=== PATIENT | female | born 1945 | race Caucasian/White ===

== ENCOUNTER 2017-07-17 06:36 | Day surgery (SDC) | payer MEDICARE, OTHER ==
[~2017-07-17 06:36] MED LIST: Buffered Lidocaine 0.9% SYRIN* 5 ML/SYR SYRINGE INTRADERM ONE; Sodium Citrate/Citric Acid* 15 ML UDC PO ONE
[2017-07-17] MEDS ORDERED: Sodium Citrate/Citric Acid* 15 ML UDC ONE (07:03)
[2017-07-17] MEDS ORDERED: Clindamycin 900 MG IVPREMIX(* 900 MG/50 ML SDV IV ONE (07:03)
[2017-07-17] MEDS ORDERED: Buffered Lidocaine 0.9% SYRIN* 5 ML/SYR SYRINGE ONE (07:04)
[2017-07-17] MEDS ORDERED: Bupivacaine 0.25% SDV* 30 ML ONE (07:04)
[2017-07-17] MEDS ORDERED: Propofol* 10 MG/ML 20 ML BTL IV PUSH ONE (07:50)
[2017-07-17] MEDS ORDERED: Lidocaine 2% PF * 5 ML VIAL ONE (07:50)
[2017-07-17] MEDS ORDERED: fentaNYL* 50 MCG/ML 2 ML VIAL (100 MCG VIAL) ONE (07:52)
[2017-07-17] MEDS ORDERED: Dexamethasone IV* 4 MG/ML 1 ML (4 MG) ONE (08:38)
[2017-07-17] MEDS ORDERED: Ketorolac INJ* 30 MG/ML 1 ML VIAL ONE (09:17)
[2017-07-17] MEDS ORDERED: Ondansetron INJ* 2 MG/ML VIAL IV PRN (09:19)
[2017-07-17] MEDS ORDERED: fentaNYL* 50 MCG/ML 2 ML VIAL (100 MCG VIAL) IV PRN (09:19)
[2017-07-17] MEDS ORDERED: Naloxone* 0.4 MG/ML 1 ML VIAL IV PRN (09:19)
[2017-07-17 11:03] VITALS: BP 111/57
--- NOTE | 2017-07-18 02:31 | OP ---
DATE OF OPERATION: 07/17/17 - [facility] DATE OF : 43 SURGEON: Lb Ferguson MD COLD MOLDING PRESS OPERATOR: PATRICIA Horner. An certified surgical assistant was needed for the entirety of the procedure to aide in positioning of the arm and retraction. ANESTHESIOLOGIST: Dr. Phelps. ANESTHESIA: General. 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 PROCEDURE PERFORMED: 1. Right wrist arthroscopic debridement large degenerative TFCC lesion. 2. Right ulnar shortening osteotomy, 3. Right wrist arthroscopic partial synovectomy. INDICATIONS: Marely is 71, she had a distal radius that was fixed very short in a less than optimal position. She had some attempt by a different surgeon to alleviate her symptoms, attempted to remove the plate, however, the screw were stripped down, so this could not be done. Ultimately, she is left with severe dorsal wrist pain and dorsal ulnar wrist pain. She has lost most of her extension. I told her that we could try to get her some pain relief in the wrist by shortening the ulna and relieving the severe impingement. ESTIMATED BLOOD LOSS: 5 mL. COMPLICATIONS: None. FINDINGS: As expected. DESCRIPTION OF PROCEDURE: Marely was seen in the preoperative holding area. The correct side, site, and procedure were identified. We came back to the operating room. Anesthesia was induced. The arm was prepped and draped in the usual fashion. A time-out was performed. I began by developing the 3-4 arthroscopic portal in standard fashion with 11 blade followed by the mosquito and then the blunt trocar was introduced. The camera introduced in the 3-4 portal. The 4-5 portal was developed. There was abundant dorsal synovitis obscuring almost the entirety of the view. I brought in the [place] 2.5 mm shaver and the debridement was begun. I debrided all of the dorsal synovitis with the shaver, this took quite some time as it was extensive and much longer than normal. After the synovitis was debrided I was able to visualize the ulnar side of the joint. There was complete degeneration of the TFCC. I was able to develop a 6R portal and placed the shaver and the biter through the 6R portal and ultimately we are able to debride all of that TFCC degeneration and fraying back to loose stable edges at the margins. Once everything was completely clean and stable I did one final last debridement of any loose edges with the shaver. The arthroscopic tools were then removed. I then turned my attention to the forearm. I made a longitudinal incision right over the subcutaneous port of the ulna. Dissection was carried down and full-thickness flaps raised up to fascia. I split the fascia overlying this mass with periosteum. Right now over the subcutaneous port of the ulna and used the interval between the ECU and FCU. I released the soft tissue off the dorsum of the bone. I placed my TriMed plate onto the dorsal aspect of the bone. This was clamped and placed. I then placed 1 screw in the far edge of the oblong hole. I then placed the three other screws proximal to the lag screw hole. Once plate was secured, I went ahead and selected a 5 mm cutting guide. I made one parallel cut and the second parallel cut using cutting guide B. I then had already pre-placed my wire for my compression clamp, so I set my compression clamp back in place and compressed the osteotomy down and tightened up the screw in the oblong hole. I then went ahead and drilled in the proximal aspect of the hole and replaced the screw in the oblong hole into that most proximal aspect of the hole. Preoperatively, I templated 8 mm of osteotomies, so I went ahead and selected the 3 mm guide at this time and clamped that into place. I then made another osteotomy and resected an additional 3 mm of ulna. I then placed the compression clamp back on and compressed on the osteotomy. I guided it with the lobster claw clamp and ultimately achieved perfect apposition of the 2 fragments. The lag screw was then placed in standard fashion. This was drilled and then tapped into place in standard fashion with a 20 mm lag screw. I loosened the oblong hole prior to tightening the oblong screw. I then tightened up the oblong hole and placed 2 additional screws just distal to the oblong hole. There was perfect apposition of the osteotomy. The compression was excellent. I brought in the mini C-arm and checked the mini fluoroscopic imaging. I had achieved just 1 mm of ulnar negative variance. The osteotomy was no longer visible on the fluoroscopic imaging. Everything looked good including the screw lengths, so I went ahead and irrigated out the wound. The fascia was closed with 2-0 Vicryl sutures. Subcutaneous tissue was reapproximated with a couple of Vicryl sutures and then the skin was closed with 4-0 Monocryl and Steri-Strips. The arthroscopy portals were closed with 4- 0 Monocryl in simple interrupted sutures. The operative sites had all been infiltrated with 0.25% plain Marcaine. Wounds were then dressed with 4 x 4's and sterile Webril and sugar tong splint was placed. Tourniquet was deflated and the hand pinked up immediately. She was woken up and taken to recovery room in stable condition. [id number]/[facility] #: [id number] SRIKANTH
== END 2017-07-17 11:39 | disposition home or self-care (01) ==
LOC: OR 06:36
PROVIDERS: ATTEND Orthopaedic Surgery Hand Surgery
DX: S52.591P Other fractures of lower end of right radius, subsequent encounter for closed fracture with malunion (principal); M25.831 Other specified joint disorders, right wrist; G56.21 Lesion of ulnar nerve, right upper limb; I10 Essential (primary) hypertension; E78.5 Hyperlipidemia, unspecified; Z87.891 Personal history of nicotine dependence; F41.8 Other specified anxiety disorders; Z85.42 Personal history of malignant neoplasm of other parts of uterus; X58.XXXD Exposure to other specified factors, subsequent encounter; Y92.9 Unspecified place or not applicable
CPT/HCPCS: 88304; 88311; A9270-GY; C1713; C1776; J1100; J1885; J2704; J3010

== ENCOUNTER → 2018-07-30 07:41 | Day surgery (SDC) | payer MEDICARE, OTHER ==
[~2018-07-30 07:41] MED LIST changes: -Buffered Lidocaine 0.9% SYRIN* 5 ML/SYR SYRINGE INTRADERM ONE; +Buffered Lidocaine 1% SYRIN* 1 ML/SYRINGE INTRADERM ONE; +Bupivacaine 0.25% SDV PF* 10 ML VIAL INJ ONE; +Clindamycin 900 MG/D5W BAG(*) 900 MG/50 ML BAG IVPB ONE; +Dexamethasone IV* 4 MG/ML 1 ML (4 MG) ONE; +EPHEDrine (Pressors)* 50 MG/ML VIAL ONE; +Famotidine IV* 10 MG/ML 2 ML (20 mg) IV ONE; +Famotidine IV* 10 MG/ML 2 ML (20 mg) ONE; +KETAMINE HCL* 50 MG/ML 10 ML VIAL ONE; +Ketorolac INJ* 30 MG/ML 1 ML VIAL ONE; +Lactated Ringers 1000 ML Bag* 1,000 ML IV SCH; +Lidocaine 2% PF * 5 ML VIAL ONE; +Midazolam* 1 MG/ML 5 ML VIAL (5 MG) ONE; +Naloxone* 0.4 MG/ML 1 ML VIAL IV PRN; +Ondansetron INJ* 2 MG/ML VIAL IV PRN; +Ondansetron INJ* 2 MG/ML VIAL ONE; +Phenylephrine INJ* 10 MG/ML 1 ML VIAL (10 MG) ONE; +Propofol* 10 MG/ML 20 ML BTL ONE; +ROPIVACAINE 5 MG/ML 30 ML BTL (0.5%) ONE; -Sodium Citrate/Citric Acid* 15 ML UDC PO ONE; +fentaNYL* 50 MCG/ML 2 ML VIAL (100 MCG VIAL) IV PRN; +fentaNYL* 50 MCG/ML 2 ML VIAL (100 MCG VIAL) ONE; +oxyCODONE/Acetamin 5/325 MG* TAB PO PRN
[2018-07-30 14:10] VITALS: BP 113/64
--- NOTE | 2018-07-31 13:25 | OP ---
DICTATION ENDS ABRUPTLY DATE OF OPERATION: 07/30/18 - [facility] DATE OF : 43 SURGEON: Lb Ferguson MD. CABANA ATTENDANT: PATRICIA Horner. An urology physician assistant was needed for the procedure to aid in positioning of the arm and retraction. ANESTHESIOLOGIST: Dr. Kauffman. ANESTHESIA: General. PRE-OP DIAGNOSES: 1. Retained right distal radius plate and screws. 2. Right pisotriquetral degenerative joint disease. 3. Right ulnar nerve compression at the wrist. POST-OP DIAGNOSES: 1. Retained right distal radius plate and screws. 2. Right pisotriquetral degenerative joint disease. 3. Right ulnar nerve compression at the wrist. OPERATIVE PROCEDURE: 1. Removal of deep hardware including two screws from the right distal radius plate and screws. 2. Right wrist pisiform excision. 3. Right ulnar nerve decompression of wrist. INDICATIONS: Marely is 72. She has had distal radius malunion. I have shortened her arm and that helped tremendously with the pain in the wrist. She is still getting a lot of ulnar nerve symptoms which she has had for quite sometime. She has undergone a prior ulnar nerve transposition at the elbow. New set of electrodiagnostic studies showed no changes at the elbow. Overall, she had a lot of clinical signs of pisotriquetral degenerative joint disease as well as I thought that her ulnar nerve symptoms were from wrist and not the elbow. Additionally, I thought she may be potentially having some discomfort stemming from the plate, so I told that I would try to have remove that to the best extent possible. She had attempted the hardware removal earlier and 4 screws remained as well as the plate. I told that I would see what I could do about getting the remainder out. I was optimistic that I would able to get the remaining hardware removed. She understood the risks and benefits including the risk of neurovascular injury, risk of stiffness, risk of persistent pains by doing surgery. She understands and wished to proceed. ESTIMATED BLOOD LOSS: 20 mL. COMPLICATIONS: During the ulnar nerve decompression of the wrist, there was a small valarie made in the ulnar artery, which required a couple of 9-0 nylon sutures for repair. FINDINGS: See above and below. DESCRIPTION OF PROCEDURE: Marely was seen in the preoperative holding area. The correct site, side, and procedure were identified. We came back to the operating room and the arm was prepped and draped in the usual fashion and time- out was performed. I began by exsanguinating the arm with the Esmarch and the tourniquet was inflated to 250 mmHg. The patient's prior longitudinal incision over the distal FCR tendon was utilized. Dissection was carried down, radial through the FCR ____ DICTATION ENDS ABRUPTLY [id number]/[facility] #: [id number] SRIKANTH
== END | disposition home or self-care (01) ==
LOC: OR 07:41
PROVIDERS: ATTEND Orthopaedic Surgery Hand Surgery
DX: T84.84XA Pain due to internal orthopedic prosthetic devices, implants and grafts, initial encounter (principal); Y83.1 Surgical operation with implant of artificial internal device as the cause of abnormal reaction of the patient, or of later complication, without mention of misadventure at the time of the procedure; G56.21 Lesion of ulnar nerve, right upper limb; S52.591P Other fractures of lower end of right radius, subsequent encounter for closed fracture with malunion; I10 Essential (primary) hypertension; E78.5 Hyperlipidemia, unspecified; F41.8 Other specified anxiety disorders
CPT/HCPCS: 88300; 88304; 88311; J1100; J1885; J2250; J2405; J2704; J2795; J3010; J3490

== ENCOUNTER 2019-01-30 18:35 | Emergency (ER) | payer MEDICARE, OTHER ==
--- NOTE | 2019-01-30 19:52 | ED ---
Lower Extremity - HPI Summary HPI Summary: This patient is a 73 year old F presenting to [facility] with a chief complaint of swelling and pain in right legs for the past 3 weeks. Pt went to radiology, and had a venogram. She was told a series of blood clots were found and was sent to the ED. She goes to Dr. Tolliver for the swelling in her legs, and he was the one who ordered the venogram. Pt had an ultrasound done 3 weeks ago and it was negative. Pt has no PMHx of clots, or blood disease. Pt has a Hx of Uterine Cancer, and has had a hysterectomy. - History of Current Complaint Chief Complaint: EDExtremityLower Stated Complaint: DVT ON RIGHT SIDE OF BODY, PER DR BOLAND PER PT Time Seen by Provider: 01/30/19 19:40 Hx Obtained From: Patient Onset/Duration: Still Present Severity Initially: Moderate Severity Currently: Moderate Pain Intensity: 6 Pain Scale Used: 0-10 Numeric Timing: Constant Location: Is Diffuse - right leg Associated Signs And Symptoms: Positive: Swelling - Allergies/Home Medications Allergies/Adverse Reactions: Allergies Allergy/AdvReac Type Severity Reaction Status Date / Time Penicillins Allergy Unknown Unknown Verified 01/30/19 17:16 Reaction Details Home Medications: Home Medications Ascorbic Acid TAB* [Vitamin C TAB*] 500 mg PO DAILY 01/30/19 [History Confirmed 01/30/19] Cholecalciferol (Vitamin D3) [Vitamin D3] 3,000 units PO DAILY 01/30/19 [ History Confirmed 01/30/19] Rosuvastatin Calcium 10 mg PO DAILY 01/30/19 [History Confirmed 01/30/19] PMH/Surg Hx/FS Hx/Imm Hx Cardiovascular History: Reports: Hx Hypertension - ON MEDICATION, Other Cardiovascular Problems/Disorders - HIGH CHOLESTEROL GI History: Reports: Hx Irritable Bowel - diet Musculoskeletal History: Reports: Hx Arthritis - knees and hips Sensory History: Reports: Hx Contacts or Glasses - GLASSES Denies: Hx Hearing Aid Opthamlomology History: Reports: Hx Contacts or Glasses - GLASSES Psychiatric History: Reports: Hx Anxiety - MEDICATION - Cancer History Hx Chemotherapy: No Hx Radiation Therapy: No - Surgical History Surgery Procedure, Year, and Place: [facility] R/T UTERINE [place]. 1972 [facility]. 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 LEFT KNEE SURGERY (LIGAMENTS) [facility]. 1995 SEPTAL SURGERY [facility]. 8 RIGHT WRIST SURGERIES Hx Anesthesia Reactions: No Infectious Disease History: No Infectious Disease History: Denies: Traveled Outside the [place] in Last 30 Days - Family History Known Family History: Negative: Blood Disorder - Social History Occupation: Retired Alcohol Use: None Substance Use Type: Reports: None Hx Tobacco Use: Yes Smoking Status (MU): Former Smoker Type: Cigarettes Amount Used/How Often: 1 PPD,smoked for 30 approx Have You Smoked in the Last Year: No Review of Systems Negative: Fever Positive: Edema, Other - pos - right leg pain All Other Systems Reviewed And Are Negative: Yes Physical Exam - Summary Physical Exam Summary: VITAL SIGNS: Reviewed. GENERAL: Patient is a well-developed and nourished female who is lying comfortable in the stretcher. Patient is not in any acute respiratory distress. HEAD AND FACE: No signs of trauma. No ecchymosis, hematomas or skull depressions. No sinus tenderness. EYES: PERRLA, EOMI x 2, No injected conjunctiva, no nystagmus. EARS: Hearing grossly intact. Ear canals and tympanic membranes are within normal limits. MOUTH: Oropharynx within normal limits. NECK: Supple, trachea is midline, no adenopathy, no JVD, no carotid bruit, no c- spine tenderness, neck with full ROM CHEST: Symmetric, no tenderness at palpation LUNGS: Clear to auscultation bilaterally. No wheezing or crackles. CVS: Regular rate and rhythm, S1 and S2 present, no murmurs or gallops appreciated. ABDOMEN: Soft, non-tender. No signs of distention. No rebound no guarding, and no masses palpated. Bowel sounds are normal. EXTREMITIES: FROM in all major joints, right lower extremity edema, no cyanosis or clubbing. NEURO: Alert and oriented x 3. No acute neurological deficits. Speech is normal and follows commands. SKIN: Dry and warm Triage Information Reviewed: Yes Vital Signs On Initial Exam: Initial Vitals Temp Pulse Resp BP Pulse Ox 97.6 F 86 18 173/102 99 01/30/19 18:39 01/30/19 18:39 01/30/19 18:39 01/30/19 18:39 01/30/19 18:39 Vital Signs Reviewed: Yes Diagnostics - Vital Signs Vital Signs Temp Pulse Resp BP Pulse Ox 01/30/19 19:00 84 97 01/30/19 18:56 90 167/106 99 01/30/19 18:55 90 98 01/30/19 18:39 97.6 F 86 18 173/102 99 - Laboratory Result Diagrams: 01/30/19 20:29 01/30/19 20:29 Lab Statement: Any lab studies that have been ordered have been reviewed, and results considered in the medical decision making process. - EKG 2018 Cardiac Rate: NL - 73 bpm EKG Rhythm: Sinus Rhythm Summary of EKG Findings: An EKG at 20:18 reveals sinus rhythm 73 bpm. Re-Evaluation - Re-Evaluation First Eval Re-Evaluation Time: 21:15 Comment: Discussed plan of care with pt. Lower Extremity Course/Dx - Course Course Of Treatment: This patient is a 73 year old F presenting to [facility] with a chief complaint of swelling and pain in right legs for the past 3 weeks. Pt went to radiology, and had a venogram. She was told a series of blood clots were found and was sent to the ED. Pt had an ultrasound done 3 weeks ago and it was negative. Pt has no PMHx of clots, or blood disease. Physical exam findings are nml except right lower extremity swelling. Blood work obtained. Potassium is 3.0. An EKG at 2018 reveals sinus rhythm 73 bpm. In the ED course the patient was given Enoxaparin, and Potassium Clor TAB. We discussed patient care with Dr. Duran believes pt should be discharged. Dr. Duran and her LACE MACHINE OPERATOR saw pt in ED and just recommended pt be put on xarelto. Patient will be discharged. The patient is agreeable with this plan. - Diagnoses Provider Diagnoses: Deep vein thrombosis (DVT) of right lower extremity - Physician Notifications Discussed Care Of Patient With: Stefan Boland Time Discussed With Above Provider: 19:53 Instructed by Provider To: Other - Discussed pt case with Dr. Boland; 21:22 Discussed pt case with Dr. Duran; 21:31 Dr. Duran would like to discharge pt but will send someone to see pt. 22:19 LACE MACHINE OPERATOR saw pt and discussed with both Dr. Arroyo and Dr Duran and thinks it would be best to discharge pt. Discharge - Sign-Out/Discharge Documenting (check all that apply): Patient Departure - Discharge Patient Received Moderate/Deep Sedation with Procedure: No - Discharge Plan Condition: Fair Disposition: HOME Prescriptions: Rivaroxaban TAB(*) [Xarelto 15 mg(*)] 15 mg PO BID #42 tab Patient Education Materials: Deep Vein Thrombosis (ED) Referrals: Gordon Fox MD [Primary Care Provider] - 1 Day Additional Instructions: Pt has a 21 day supply of Xarelto, contact primary care provider for new prescription. PLEASE RETURN TO THE ED IMMEDIATELY FOR WORSENING OR CONCERNING SYMPTOMS. FOLLOW UP WITH PRIMARY CARE PHYSICIAN WITHIN 1-2 DAYS. - Billing Disposition and Condition Condition: FAIR Disposition: Home - Attestation Statements Document Initiated by Aliza: Yes Documenting Scribe: Gloria Meneses Provider For Whom Aliza is Documenting (Include Credential): Dr. Jorge Hale MD Scribe Attestation: Gloria Vu scribed for Dr. Jorge Hale MD on 01/31/19 at 0528. Scribe Documentation Reviewed: Yes Provider Attestation: The documentation as recorded by the Gloria phillips accurately reflects the service I personally performed and the decisions made by , Dr. Jorge Hale MD Status of Scribcatrachito Document: Viewed
[2019-01-30 20:36] LABS: ABS Basophils 0.1 10^3/ul (0-0.2); ABS Eosinophils 0.1 10^3/ul (0-0.6); ABS Lymphocytes 1.9 10^3/ul (1.0-4.8); ABS Monocytes 0.5 10^3/ul (0-0.8); ABS Neutrophils 3.9 10^3/ul (1.5-7.7); Eosinophil % 2.2 %; Hematocrit 38 % (35-47); Hemoglobin 13.1 g/dL (12.0-16.0); Lymphocyte % 28.3 %; Mean Corpuscular HGB Conc 34 g/dL (31-36); Mean Corpuscular Hemoglobin 29 pg (27-31); Mean Corpuscular Volume 85 fL (80-97); Mean Platelet Volume 8.8 fL (7.4-10.4); Platelet Count 232 10^3/uL (150-450); Red Blood Count 4.48 10^6 /uL (3.70-4.87); Red Cell Distribution Width 14 % (10-15); White Blood Count 6.5 10^3/uL (3.5-10.8)
[2019-01-30 20:45] LABS: Activated Partial Thrombo Time 31.1 seconds (26.0-38.0); INR 0.97 (0.82-1.09)
[2019-01-30 20:52] LABS: Albumin 4.2 g/dL (3.2-5.2); Albumin/Globulin Ratio 1.4 (1-3); BUN/Creatinine Ratio 18.7 (8-20); Calcium 9.2 mg/dL (8.6-10.3); EGFR African American 73.1 (>60); EGFR Non-African American 60.4 (>60); Globulin 2.9 g/dL (2-4); Total Bilirubin 0.3 mg/dL (0.2-1.0); Total Protein 7.1 g/dL (6.4-8.9)
[2019-01-30] MEDS ORDERED: Enoxaparin(*) 80 MG/0.8 ML SYR SUBCUT ONE (21:13)
[2019-01-30] MEDS ORDERED: Potassium Chlor TAB* 20 MEQ TAB.ER PO ONE (21:13)
--- NOTE | 2019-01-30 22:29 | CONSULT ---
Subjective Date of Service: 01/30/19 Interval History: Ms. Sanderson is a 73 yo F who was sent to the ED from radiology after findings of new onset DVTs. The patient reports that she has been having RLE edema since October. No associated pain, but there is discomfort on palpation. She did have some bruising to the anterior right thigh that has since resolved. She has been seeing Dr. Tolliver for the edema and has been prescribed Medrol dose packs x2 which did decrease the edema slightly. Had imaging today because of continued edema and was noted to have multiple DVTs in the RLE including the distal iliac and common femoral veins. Denies CP, SOB, dizziness. No history of DVT/PE. No recent travel or surgeries. Past Medical History: Unchanged from Admission - HTN, HLD, anxiety, uterine cancer in remission s/p hysterectomy Review of Systems - Measurements Intake and Output: Intake and Output Last 24 Hours 01/28/19 01/29/19 01/30/19 01/31/19 06:59 06:59 06:59 06:59 Weight 169 lb - Review of Systems Constitutional Symptoms: Negative: Weakness, Fatigue, Unexplained Falls Dermatology: Positive: Normal HEENT: Positive: Normal Pulmonary: Positive: Normal Negative: Cough, Hemoptysis, Respiratory Distress, Shortness of Breath, Exercise Intolerance Cardiology: Positive: Normal Negative: Chest Pain, Shortness of Breath, Faintness, Syncope Musculoskeletal: Negative: Joint Pain, Joint Stiffness Neurology: Positive: Normal Objective Vital Signs - 8 hr 01/30/19 01/30/19 01/30/19 18:39 18:55 18:56 Temperature 97.6 F Pulse Rate 86 90 90 Respiratory 18 Rate Blood Pressure 173/102 167/106 (mmHg) O2 Sat by Pulse 99 98 99 Oximetry 01/30/19 19:00 Temperature Pulse Rate 84 Respiratory Rate Blood Pressure (mmHg) O2 Sat by Pulse 97 Oximetry Oxygen Devices in Use Now: None Appearance: Elderly female laying in bed in NAD Eyes: No Scleral Icterus Ears/Nose/Mouth/Throat: Mucous Membranes Moist Neck: NL Appearance and Movements; NL JVP, Trachea Midline Respiratory: Symmetrical Chest Expansion and Respiratory Effort, Clear to Auscultation Cardiovascular: NL Sounds; No Murmurs; No JVD, RRR Extremities: - - Mild nonpitting RLE with slight discomfort on palpation Skin: No Rash or Ulcers Neurological: Alert and Oriented x 3 Result Diagrams: 01/30/19 20:29 01/30/19 20:29 Assessment/Plan - Billing Ms. Sanderson is a 73 yo F with PMH of uterine cancer in remission s/p hysterectomy , HTN, HLD, and anxiety who presented to the ED today with new onset DVTs found on outpatient imaging. Plan By Medical Problem: 1. Unprovoked DVTs: Extensive DVTs to the RLE including the distal iliac and common femoral veins. Mild edema, but no pain or erythema. No symptoms of PE. Spoke with Oncologist content writer who advised that because she is in remission, she does not require any additional monitoring or treatment. At this point the patient is comfortable going home. She is understanding of the symptoms of PE and was able to verbalize those. She lives with her who was also present for this conversation. She did receive a dose of Lovenox in the ED, so I would recommend that she start anticoagulation in the AM. I did speak with her about options, and she is opting for a NOAC at this time. I would recommend Xarelto 15mg BID for 21 days then 20mg daily thereafter. She will need close followup with her PCP. 2. HTN: She is quite hypertensive in the ED and has only been on 12.5mg of HCTZ. I would recommend increasing this to 25mg daily. 3. Disposition: Stable for discharge home with outpatient followup. Attending: Emmy Duran
[2019-01-30 22:59] VITALS: BP 155/87
--- OUTSIDE RECORDS SUMMARY | 2019-01-31 01:24 | XMS REPORT | Continuity of Care Document ---
:1945 External Reference #:[id number] Author Name Clark Nikki Care Team Providers Name Role Phone Gordon Fox MD Primary Care Physician Unavailable Payers Date Identification Numbers Payment Provider Subscriber Policy Number: [id number] Medicare Marely Card PayID: [id number] [address] [place] [address] Effective: 2009 Policy Number: [id number] Medicare Marely Card Expires: 2018 PayID: [id number] [address] [place] [address] Policy Number: [id number] For Life Marely Card PayID: [id number] [address] [place] [address] Problems Active Problems Provider Date Chest pain Theresa Chavez M.D. Onset: 08/28/2012 Hyperlipidemia Theresa Chavez M.D. Onset: 08/28/2012 Essential hypertension Theresa Chavez M.D. Onset: 08/28/2012 Fracture malunion Lb Ferguson MD Onset: 05/16/2017 Lesion of ulnar nerve Lb Ferguson MD Onset: 05/16/2017 Pain due to internal orthopedic Lb Ferguson MD Onset: 07/04/2018 prosthetic devices, implants and grafts, subsequent encounter Localized, primary osteoarthritis of Lb Ferguson MD Onset: 08/14/2018 the wrist Localized superficial swelling of skin Stefan Mckeon M.D. Onset: 2018 Family History Date Family Member(s) Observation Comments General Cancer General Hypertension General Heart Disease Father Heart Disease Father due to CHF () Father Chronic Obstructive Pulmonary Disease (COPD) Mother due to old age () First Daughter Alive And Well Second Daughter Alive And Well First Brother due to Cancer () Second Brother due to Diabetes () Second Brother due to Heart Disease () First Sister "not healthy" unk Second Sister due to Diabetes () Second Sister due to Heart Disease () Paternal Grandfather due to epilepicy () Paternal Grandmother due to Unknown Causes () Maternal Grandfather due to MA () Maternal Grandmother due to Old age () Social History Type Date Description Comments Sex Unknown Marital Status Lives With Occupation Retired teacher Cigarette Use Pack Years - 30 Cigarette Use Quit 25 Years Ago ETOH Use Denies alcohol use Tobacco Use Start: Unknown End: Patient is a former quite 18 years ago. Unknown smoker 30 years 1 PPD Recreational Drug Use Denies Drug Use Smoking Status Reviewed: 01/18/19 Patient is a former quite 18 years ago. smoker 30 years 1 PPD Exercise Type/Frequency Exercises regularly dances daily, weights Allergies, Adverse Reactions, Alerts Active Allergies Reaction Severity Comments Date Penicillins Mild family hx 07/06/2012 Hydroxychloroquine 09/28/2018 Medications Active Medications SIG Qnty Indications Ordering Date Provider Medrol take as directed 21tabs [facility] 4mg Tablets per gaudencio Tolliver MD 9 instructions Medrol take as directed 21tabs [facility] 4mg Tablets per jayde Tolliver MD 9 instructions Rosuvastatin Calcium 1 by mouth every 30tabs I10 Benjamin Noble 10mg day DO Ronnie 9 Tablets FACC Linzess 1 by mouth every Unknown 145mcg Capsules day 0 Vitamin C ER 1 by mouth every Unknown 500mg Capsules ER day 0 Buspirone HCL 2 by mouth three Gordon Fox 7.5mg Tablets times a day as MD Ryan 0 needed Hydrochlorothiazide 1 by mouth daily Gordon Fox 12.5mg MD Ryan 0 Tablets Advil as needed Unknown 200mg Tablets 0 Vitamin D-3 1 po qd 30tabs Unknown 3000Units Tablets 0 Multivitamins 1 capsule daily 30caps Unknown Capsules 0 Valium 1 po qid prn 1tabs Unknown 10mg Tablets 0 History Medications Keflex by mouth every 8 21caps Ankit Soriano 12/05/2018 - 500mg Capsules hours x 7 days MD Unruly 12/25/2018 Tramadol HCL 1-2 tablets by 30tabs Lb Ferguson, 07/30/2018 - 50mg mouth every 6 MD 10/04/2018 Tablets hours as needed pain Hydrocodone-Acetamino 1 or 2 tabs by 30tabs Lb Ferguson, 06/12/2017 - phen mouth every 6-8 MD 07/03/2018 5-325mg Tablets hours as needed for post-operative pain Buspar 2 po hs 60tabs Unknown - 15mg Tablets 09/04/2018 Ambien CR 1 qhs prn 15tabs Unknown - 6.25mg 12/30/2014 Tablets ER Stool Softener prn Unknown - Tablets 07/03/2018 Calcium Magnesium 750 hs Unknown - 07/03/2018 Tablets Fenofibrate 1 by mouth daily I10 Unknown - 200mg 10/05/2018 Capsules Vital Signs Date Vital Result Comment 01/18/2019 1:03pm Height 66 inches 5'6" Weight 167.50 lb Heart Rate 90 /min BP Systolic 126 mmHg BP Diastolic 80 mmHg Pain Level 2 O2 % BldC Oximetry 96 % BMI (Body Mass Index) 27.0 kg/m2 01/09/2019 8:09am Height 66 inches 5'6" Weight 170.00 lb with shoes Heart Rate 90 /min BP Systolic Sitting 120 mmHg Lue reg cuff BP Diastolic Sitting 74 mmHg Lue reg cuff Respiratory Rate 16 /min BMI (Body Mass Index) 27.4 kg/m2 12/26/2018 2:30pm Height 66 inches 5'6" Weight 169.00 lb Heart Rate 74 /min Respiratory Rate 16 /min Pain Level 2 BMI (Body Mass Index) 27.3 kg/m2 12/11/2018 3:03pm Height 66 inches 5'6" Weight 170.00 lb BP Systolic 124 mmHg BP Diastolic 73 mmHg Respiratory Rate 17 /min Pain Level 4 BMI (Body Mass Index) 27.4 kg/m2 12/03/2018 4:24pm Height 66 inches 5'6" Weight 171.00 lb Heart Rate 76 /min BP Systolic 132 mmHg BP Diastolic 78 mmHg Respiratory Rate 12 /min Pain Level 6 BMI (Body Mass Index) 27.6 kg/m2 10/05/2018 1:07pm Height 65 inches 5'5" Weight 166.00 lb Heart Rate 68 /min BP Systolic Sitting 120 mmHg lue reg cuff BP Diastolic Sitting 80 mmHg lue reg cuff BP Systolic Standing 118 mmHg lue reg cuff BP Diastolic Standing 80 mmHg lue reg cuff Respiratory Rate 14 /min BMI (Body Mass Index) 27.6 kg/m2 Ejection Fraction 60-65% 08/14/2018 1:51pm Height 65 inches 5'5" Heart Rate 84 /min Respiratory Rate 18 /min Body Temperature 98.0 F Pain Level 2 07/04/2018 9:24am Height 65 inches 5'5" Weight 168.00 lb BP Systolic 119 mmHg BP Diastolic 82 mmHg Respiratory Rate 16 /min Pain Level 3 BMI (Body Mass Index) 28.0 kg/m2 05/30/2018 11:29am Height 65 inches 5'5" Weight 172.00 lb Heart Rate 90 /min Respiratory Rate 16 /min Body Temperature 97.7 F Pain Level 7 BMI (Body Mass Index) 28.6 kg/m2 10/31/2017 2:52pm Height 65 inches 5'5" Weight 172.00 lb BP Systolic 108 mmHg BP Diastolic 70 mmHg Respiratory Rate 16 /min Body Temperature 97.3 F Pain Level 2 BMI (Body Mass Index) 28.6 kg/m2 08/29/2017 2:52pm Height 65 inches 5'5" Weight 174.00 lb Respiratory Rate 14 /min Pain Level 4 BMI (Body Mass Index) 29.0 kg/m2 07/28/2017 1:06pm Height 65 inches 5'5" Weight 174.00 lb Heart Rate 71 /min Respiratory Rate 14 /min Body Temperature 97.1 F Pain Level 5 BMI (Body Mass Index) 29.0 kg/m2 07/07/2017 1:56pm Height 65 inches 5'5" Weight 174.00 lb Heart Rate 68 /min BP Systolic 122 mmHg BP Diastolic 74 mmHg Respiratory Rate 17 /min Body Temperature 97.3 F Pain Level 4 BMI (Body Mass Index) 29.0 kg/m2 05/16/2017 2:07pm Height 65 inches 5'5" Weight 183.00 lb Respiratory Rate 14 /min Body Temperature 97.6 F Pain Level 6 BMI (Body Mass Index) 30.4 kg/m2 01/29/2015 2:09pm Height 65 inches 5'5" Weight 173.00 lb Heart Rate 83 /min BP Systolic Sitting 109 mmHg BP Diastolic Sitting 84 mmHg Respiratory Rate 18 /min Pain Level 8 BMI (Body Mass Index) 28.8 kg/m2 10/16/2012 2:16pm Height 65 inches 5'5" Weight 152.00 lb Heart Rate 100 /min BP Systolic Sitting 130 mmHg BP Diastolic Sitting 70 mmHg Respiratory Rate 20 /min BMI (Body Mass Index) 25.3 kg/m2 08/28/2012 1:47pm Height 65 inches 5'5" Weight 158.00 lb Heart Rate 88 /min BP Systolic Sitting 150 mmHg BP Diastolic Sitting 82 mmHg Respiratory Rate 20 /min BMI (Body Mass Index) 26.3 kg/m2 12/01/2010 11:40am Height 65 inches 5'5" Weight 149.00 lb Heart Rate 75 /min BP Systolic 158 mmHg BP Diastolic 94 mmHg BMI (Body Mass Index) 24.8 kg/m2 Results Test Date Facility Test Result H/L Range Note Creatinine 12/13/2018 [facility] Creatinine 0.94 mg/dL N 0.51- [address] [place] [address] [phone] Egfr Non- 58.2 >60 Egfr 70.4 >60 1 Laboratory test 12/13/2018 [facility] Blood Urea 20 mg/dL N 6- [address] [place] [address] [phone] Arthritis Panel 12/05/2018 [facility] Anti-Nuclear 0.[address] [place] [address] [phone] Cyclic Citrullinated Peptide 56.1 U Abnormal 3 Interpretation See Comment 4 Laboratory test 12/05/2018 [facility] C Reactive 43.60 mg/L High <8.[address] [place] [address] [phone] Erythrocyte Sed Rate 44 mm/Hr High 0-29 Lupus Anticoagulant 12/05/2018 [facility] Prothrombin 10.9 sec [address] Time(L[place]) [place] [address] [phone] Lac Inr 1.0 Lac Aptt 28 sec 26 - 36 Lac DRVVT Screen Ratio 1.0 ratio 0.0 - 1.1 Lupus Anticoagulant Interpreta See Comment 6 Nuclear AB 12/05/2018 [facility] Nuclear Ab Positive 1:160 Abnormal 7 (Annia) By [address] (Annia) by [place], [place] [address] IgG [phone] Annia Titer: 1:160 Annia Pattern: Homogeneous 8 Laboratory test 12/05/2018 [facility] Rheumatoid Factor < 10 IU/ mL N <[address] [place], [place] [address] [phone] Uric Acid 5.6 mg/dL N 2.3-6.6 Lyme Disease 12/05/2018 [facility] B burgdorferi Negative Negative PCR [address] PCR, [place] [address] [phone] B mayonii PCR Negative Negative B garinii/B afzelii PCR Negative Negative Lyme Disease PCR Comment See Comment 9 Laboratory test 12/03/2018 [facility] Miscellaneous Test See Comment [address] [place] [address] [phone] Body Fluid Cell 12/03/2018 [facility] Body Fluid Source Synovial Count [address] [place] [address] [phone] Body Fluid Appearance Clear Body Fluid Color Yellow Body Fluid Volume 11.0 mL Body Fluid WBC 194 /mcL N 11 Body Fluid RBC 581 /mcL Body Fluid Neutrophils 24 % Body Fluid Lymph 66 % Body Fluid [place] 10 % Body Fluid Other Cells 12 Body Fluid Total Cells Counted 100 Fluid Reviewed By MD (SEE NOTE) 12 Lyme Disease PCR 12/03/2018 [facility] Lyme Disease SYNOVIAL Tissue/Fluid [address] Source [place], [place] [address] [phone] B. burgdorferi PCR Negative Negative B. mayonii PCR Negative Negative B. garinii/B. afzellii PCR Negative Negative 13 Laboratory test 07/30/2018 [facility] Surgical SEE RESULT [address] [place] [address] [phone] Laboratory test 07/17/2017 [facility] Surgical SEE RESULT [address] [place] [address] [phone] 1 Because ethnic data is not always readily available, this report includes an eGFR for both -Americans and non- Americans. The National Kidney Disease Education Program (NKDEP) does not endorse the use of the MDRD equation for patients that are not between the ages of 18 and 70, are , have extremes of body size, muscle mass, or nutritional status, or are non- or non-. According to the National Kidney Foundation, irrespective of diagnosis, the stage of the disease is based on the level of kidney function: Stage Description GFR(mL/min/1.73 m(2)) 1 Kidney damage with normal or decreased GFR 90 2 Kidney damage with mild decrease in GFR 60-89 3 Moderate decrease in GFR 30-59 4 Severe decrease in GFR 15-29 5 Kidney failure <15 (or dialysis) 2 REFERENCE VALUE <=1.0 (Negative) 3 Interpretation: Positive (40.0-59.9) REFERENCE VALUE <20.0 (Negative) 4 RESULT: Compatible with rheumatoid arthritis. Test Performed by: [facility] [employer] - [facility] [address] [place] [address] 5 REFERENCE VALUE 10.3 - 12.8 6 No evidence of a lupus-like anticoagulant based on results of Prothrombin Time (PT), Activated Partial Thromboplastin Time (APTT), and Dilute Russells Viper Venom Time (DRVVT). Interpretation not reviewed by physician. Test Performed by: [facility] [address] [place] [address] 7 REFERENCE VALUE <1:80 (Negative) 8 Test Performed by: [facility] [employer] - [facility] [address] [place] [address] 9 A negative result does not exclude infection with Borrelia burgdorferi. Serologic testing as per CDC guidelines may be indicated. ADDITIONAL INFORMATION This test was developed and its performance characteristics determined by [facility] in a manner consistent with CLIA requirements. This test has not been cleared or approved by the U.S. Food and Drug Administration. Test Performed by: [facility] - [address] [address] 10 Test Result Flag Unit RefValue Crystal ID, Synovial Fl None seen None seen Reviewed By: Sara Test Performed by: [facility] - [address] [address] 11 -- REFERENCE VALUE -- Synovial: <150/mcL Peritoneal: <500/mcL Pleural: <500/mcL Pericardial: <500/mcL 12 No acute inflammation or malignancy identified. Reviewed by Dr. Shrestha 13 ADDITIONAL INFORMATION This test was developed and its performance characteristics determined by [facility] in a manner consistent with CLIA requirements. This test has not been cleared or approved by the U.S. Food and Drug Administration. Test Performed by: [facility] - [address] [address] 14 SEE RESULT BELOW Name: MARELY CARD : [address]: Lb Ferguson MD Acct: [id number] Unit: [id number] AGE: 72 Location: OR Re07/30/18 SEX: F [place] [facility] [place]C: [id number] REJI: 07/30/18- [facility] DR: Lb Ferguson MD REQ: [id number] RECD: 07/30/18 STATUS: SOUT _ ORDERED: Decal, LEVEL 1, LEVEL 3 ADDENDUM Addendum: Specimen #2 examined after decalcification. 2. Right fusiform bone, excision: -- Severe degenerative osteoarthritic changes. Addendum Signed (signature on file) Mason Shrestha MD 1618 FINAL DIAGNOSIS 1) Wrist, right, hardware removal: Foreign body (orthopedic hardware) (gross diagnosis) PRE-OPERATIVE DIAGNOSIS Right ulnar nerve irritation and pain, pisotriquetral joint arthritis right wrist GROSS DESCRIPTION 1. The specimen is received fresh labeled, Removal of Hardware Right Wrist , and consists of a 1.3 x 1.2 cm milton metallic spline-headed threaded screw. The following inscription is identified: 12 mm. received separately in the same container is a 1.3 x 0.2 cm silver metallic Seb-headed pin. Per established hospital medical staff protocol, no tissue is submitted. Gross only. 2. The specimen is received in formalin labeled, Right Pisiform Bone, and consists of a 1.5 x 1.4 x 1.1 cm mendoza-pink to brown ovoid bone fragment. Associate Product Manager sections, one CONTINUED ON NEXT PAGE DEPARTMENT OF PATHOLOGY, [address] [place] [address] Mason Shrestha M.D. Director CLIA # [id number] RUN DATE: 08/02/18 [facility] LAB LIVE PAGE 2 Patient: MARELY CARD [id number] (Continued) GROSS DESCRIPTION (Continued) cassette following decalcification. Signed by and Reported on: Mason Shrestha MD 1624 END OF REPORT DEPARTMENT OF PATHOLOGY, [address] [place] [address] Mason Shrestha M.D. Director [facility] # [id number] 15 SEE RESULT BELOW Name: MARELY CARD : [address]: Lb Ferguson MD Acct: [id number] Unit: [id number] AGE: 71 Location: OR Re07/17/17 SEX: F Status[place] [facility] [place] SPEC: [id number] REJI: 07/17/1737 [facility] DR: Lb Ferguson MD REQ: [id number] RECD: 07/17/176137 STATUS: SOUT _ ORDERED: Decal, LEVEL 3 FINAL DIAGNOSIS Right ulnar shaft, partial excision: -- Benign bone, fibroadipose, and skeletal muscle tissue. PRE-OPERATIVE DIAGNOSIS Non-union right distal radius GROSS DESCRIPTION The specimen is received in formalin labeled, Portion of Right Ulnar Shaft, and consists of two mendoza-pink irregular to ovoid bone fragments measuring 1.7 by up to 0.8 x 0.2 cm and 1.9 x 1.4 x 0.2 cm. The specimen is serially sectioned and entirely submitted in one cassette following decalcification. MICROSCOPIC DESCRIPTION . Signed (signature on file) Quiana Howell MD 1545 END OF REPORT * ML=Testing performed at Main Lab DEPARTMENT OF PATHOLOGY, [address] [place] [address] Mason Shrestha M.D. Director [facility] # [id number] Procedures Date Code Description Status 12/03/2018 34745 Inject/Drain Joint/Bursa Major W/O US Completed 10/05/2018 66097 EKG Tracing & Interpretation Completed 07/30/2018 51571 Neuroplasty/Transposition, Ulnar Nerve AT Wrist Completed 07/30/2018 95188 Neuroplasty/Transposition, Ulnar Nerve AT Wrist Completed 07/30/2018 51212 Carpectomy One Bone Completed 07/30/2018 97487 Carpectomy One Bone Completed 07/30/2018 50080 Removal Implant Deep Wire,Screw Nail,Alejandro Or Plate Completed 07/30/2018 02251 Removal Implant Deep Wire,Screw Nail,Alejandro Or Plate Completed 07/17/2017 25439 Arthroscopy Wrist Excision/Repair Triang Completed Fibrocartilage/Debride 07/17/2017 12576 Arthroscopy Wrist Excision/Repair Triang Completed Fibrocartilage/Debride 07/17/2017 06609 Osteoplasty Shorten Radius Or Ulna Completed 07/17/2017 21907 Osteoplasty Shorten Radius Or Ulna Completed 09/12/2012 61563 ECHO Transthoracic, Real-Time 2D With Doppler And Color Completed Flow 09/05/2012 47688 ECHO Stress Test Incl Perf Contiuous ekg Monitoring W/Phys Completed Superv 09/05/2012 20024 ECHO Stress Test Incl Perf Contiuous ekg Monitoring W/Phys Completed Superv 08/28/2012 18604 EKG Tracing & Interpretation Completed 06/02/2011 62786 Carpal Tunnel Release Completed 06/02/2011 86894 Arthrotomy Wrist With Synovectomy Completed 06/02/2011 Arthrotomy Wrist With Synovectomy Completed 01/21/2011 14360 Neuroplasty &/Or Transposition; Ulnar Nerve AT Elbow Completed 01/21/2011 47742 Neuroplasty &/Or Transposition; Ulnar Nerve AT Elbow Completed 12/01/2010 13491 Rad Exam; Wrist Limited, 2 Views Completed 10/05/2006 93632 Treadmill Interp/Report Only Completed 10/05/2006 93579 Treadmill Interp/Report Only Completed 10/05/2006 97260 Stress Test Supervsn W/Out I/R Completed Encounters Type Date Location Provider Dx Diagnosis Office Visit 12/26/2018 [facility] Ankit Soriano M79.89 Other specified 2:15p Of Surjit Tolliver MD soft tissue disorders Office Visit 12/11/2018 [facility] Ankit Soriano M79.89 Other specified 2:30p Of Surjit Tolliver MD soft tissue disorders M17.11 Unilateral primary osteoarthritis, right knee Z85.42 Personal history of malignant neoplasm of oth prt uterus Office Visit 12/03/2018 3:15p Orthopedic Ankit Soriano M25.461 Effusion, right Services Of MD Unruly knee Surjit M79.89 Other specified soft tissue disorders Office Visit 10/05/2018 1:40p [facility] Benjamin S. I10 Essential ( primary) Of Clemencia Trujillo DO hypertension FACC E78.5 Hyperlipidemia, unspecified Office Visit 07/04/2018 8:45a Orthopedic Lb Ferguson, G56.21 Lesion of Services Of Surjit ROBERSON ulnar nerve, right upper limb S52.591P Oth fx of lower end of r radius, subs for clos fx w malunion T84.84xD Pain due to internal orthopedic prosth dev/grft, subs Office Visit 05/30/2018 11:15a Orthopedic Lb G56.21 Lesion of ulnar Services Of MD Phyllis nerve, right C.MPeterAPeter upper limb Office Visit 10/31/2017 2:30p Orthopedic Lb S52.591P Oth fx of lower Services Of MD Phyllis end of r C.M.APeter radius, subs for clos fx w malunion Office Visit 05/16/2017 1:15p Orthopedic Lb S52.591P Oth fx of lower Services Of MD Phyllis end of r C.M.APeter radius, subs for clos fx w malunion G56.21 Lesion of ulnar nerve, right upper limb Office Visit 01/29/2015 2:00p Orthopedic Tamra Seymour, 354.2 Lesion Ulnar Services Of Surjit Fierro Nerve Office Visit 10/16/2012 2:20p [facility] Qutaybeh S. 786.50 Pain Chest Maghaydah, M.D. Unspec 401.9 Hypertension Unspec 272.4 Hyperlipidemia Other Unspec Office Visit 09/05/2012 11:30a [facility] Qutaybeh S. 786.50 Pain Chest Maghaydah, M.D. Unspec 401.9 Hypertension Unspec 272.4 Hyperlipidemia Other Unspec Office Visit 08/28/2012 2:00p [facility] Qutaybeh S. 786.50 Pain Chest Maghaydah, M.D. Unspec 272.4 Hyperlipidemia Other Unspec 401.9 Hypertension Unspec Office Visit 05/06/2011 11:00a Orthopedic Lisa 719.44 Pain Joint Services Of [facility] Office Visit 04/18/2011 9:45a Orthopedic Lisa 719.44 [facility] 354.0 Carpal Tunnel Syndrome Office Visit 01/04/2011 1:45p [facility] Baldomero Collins, 354.2 Lesion Ulnar Of Radha.M.Ryan Fierro Nerve Office Visit 12/01/2010 11:00a [facility] Baldomero Collins, 354.2 Lesion Ulnar Of C.MFletcher Fierro Nerve Plan of Treatment Future Appointment(s):02/06/2019 2:20 pm - Damian Alcantara M.D. at [facility]01/24/2019 1:30 pm - Ankit Tolliver MD at [facility]01/18/2019 - Damian Alcantara M.D.R70.0 Elevated erythrocyte sedimentation rateR06.00 Dyspnea, jriwgwsxlbfA60.0 Raised antibody yjrhsE69.8 Other specified abnormal immunological findings in eklzeN85.83 Other sbxezxoK66.541 Pain in joints of right hand
== END 2019-01-30 22:58 | disposition home or self-care (01) ==
LOC: ED 18:35
DX: I82.421 Acute embolism and thrombosis of right iliac vein (principal); I82.411 Acute embolism and thrombosis of right femoral vein; I10 Essential (primary) hypertension; F41.9 Anxiety disorder, unspecified; Z85.42 Personal history of malignant neoplasm of other parts of uterus; Z90.710 Acquired absence of both cervix and uterus; Z88.0 Allergy status to penicillin; Z87.891 Personal history of nicotine dependence
CPT/HCPCS: 36415; 80053; 85025; 85610; 85730; 93005; 99284; A9270-GY; J1650

== ENCOUNTER → 2019-07-12 07:27 | Day surgery (SDC) | payer MEDICARE, OTHER ==
[~2019-07-12 07:27] MED LIST changes: -Buffered Lidocaine 1% SYRIN* 1 ML/SYRINGE INTRADERM ONE; -Bupivacaine 0.25% SDV PF* 10 ML VIAL INJ ONE; -Clindamycin 900 MG/D5W BAG(*) 900 MG/50 ML BAG IVPB ONE; -Dexamethasone IV* 4 MG/ML 1 ML (4 MG) ONE; -EPHEDrine (Pressors)* 50 MG/ML VIAL ONE; -Famotidine IV* 10 MG/ML 2 ML (20 mg) IV ONE; -Famotidine IV* 10 MG/ML 2 ML (20 mg) ONE; +Flumazenil* 0.1 MG/ML 5 ML MDV ONE; +Heparin 2 UNITS/ML IVPREMIX* 2,000 ML IV ONE; +Iodixanol 320 (CONTRAST) 100 ML SDV ONE; +Iohexol 350 (CONTRAST) 200 ML MDV IV ONE; -KETAMINE HCL* 50 MG/ML 10 ML VIAL ONE; -Ketorolac INJ* 30 MG/ML 1 ML VIAL ONE; -Lactated Ringers 1000 ML Bag* 1,000 ML IV SCH; +Lidocaine 1% INJ* 10 MG/ML 30 ML SDV ONE; -Lidocaine 2% PF * 5 ML VIAL ONE; -Naloxone* 0.4 MG/ML 1 ML VIAL IV PRN; +Naloxone* 0.4 MG/ML 1 ML VIAL ONE; -Ondansetron INJ* 2 MG/ML VIAL IV PRN; -Ondansetron INJ* 2 MG/ML VIAL ONE; -Phenylephrine INJ* 10 MG/ML 1 ML VIAL (10 MG) ONE; -Propofol* 10 MG/ML 20 ML BTL ONE; -ROPIVACAINE 5 MG/ML 30 ML BTL (0.5%) ONE; -fentaNYL* 50 MCG/ML 2 ML VIAL (100 MCG VIAL) IV PRN; -oxyCODONE/Acetamin 5/325 MG* TAB PO PRN
[2019-07-12 08:58] LABS: ABS Eosinophils 0.1 10^3/ul (0-0.6); ABS Lymphocytes 1.2 10^3/ul (1.0-4.8); ABS Monocytes 0.5 10^3/ul (0-0.8); ABS Neutrophils 5.1 10^3/ul (1.5-7.7); Eosinophil % 1.5 %; Hematocrit 41 % (35-47); Hemoglobin 14.1 g/dL (12.0-16.0); Mean Corpuscular HGB Conc 34 g/dL (31-36); Mean Corpuscular Hemoglobin 33 pg (27-31); Mean Corpuscular Volume 95 fL (80-97); Mean Platelet Volume 8.1 fL (7.4-10.4); Platelet Count 243 10^3/uL (150-450); Red Blood Count 4.35 10^6 /uL (3.70-4.87); Red Cell Distribution Width 16 % (10-15); White Blood Count 6.8 10^3/uL (3.5-10.8)
[2019-07-12 09:06] LABS: INR 1.58 (0.82-1.09)
[2019-07-12 09:16] LABS: BUN/Creatinine Ratio 21.4 (8-20); Calcium 9.7 mg/dL (8.6-10.3); EGFR African American 63.4 (>60); EGFR Non-African American 52.4 (>60); Potassium 3.4 mmol/L (3.5-5.0)
[2019-07-12 15:20] VITALS: BP 159/95
== END | disposition home or self-care (01) ==
LOC: CHICATH 07:27
PROVIDERS: ATTEND Radiology Diagnostic Radiology
DX: I82.511 Chronic embolism and thrombosis of right femoral vein (principal); I87.021 Postthrombotic syndrome with inflammation of right lower extremity; Z79.01 Long term (current) use of anticoagulants; I10 Essential (primary) hypertension; E78.5 Hyperlipidemia, unspecified; F43.10 Post-traumatic stress disorder, unspecified; M19.90 Unspecified osteoarthritis, unspecified site; E78.00 Pure hypercholesterolemia, unspecified; K58.9 Irritable bowel syndrome, unspecified; Z87.891 Personal history of nicotine dependence
CPT/HCPCS: 36415; 75822; 76937; 80048; 85025; 85610; 85730; 99156; 99157; C1769; C1887; C1894; J1644; J2250; J2310; J3010

== ENCOUNTER 2019-08-16 05:49 | Day surgery (SDC) | payer MEDICARE, OTHER ==
--- NOTE | 2019-08-05 08:52 | HP ---
CC: Dr. Mckeon; Dr. Fox * HISTORY AND PHYSICAL: DATE OF PLANNED ADMISSION AND SURGERY: 08/16/19 Please refer to the detailed history and physical by Dr. Fox dated 07/25/19. HISTORY OF PRESENT ILLNESS: Mrs. Sanderson is a 73-year-old white female who was diagnosed in 2014 with endometrial carcinoma. She was referred to [place] where she underwent a radical hysterectomy. The pathology was very favorable showing localized disease. She did not receive radiation therapy or chemotherapy postoperatively. She has done well and has had no recurrent disease. The patient was referred last year to Dr. 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 At that time, in December 2018, she had a CT of the abdomen and pelvis which showed normal kidneys and ureters without any hydronephrosis or urinary calculi. There was a coarse calcification in the left kidney, but no calculi and no hydronephrosis noted. At that time, the patient underwent endovascular venous revascularization. She developed recurrence of the venous occlusion and she was reevaluated by Dr. Mckeon who obtained a CT venogram of the abdomen and pelvis on 07/22/19. The study showed new finding of right hydroureteronephrosis with partial obstruction of the ureter at the level of the ureterovesical junction. At that level, there was noted some ill-defined scarring with kinking of the distal ureter, but no masses and no calculi were noted. The venogram also showed occlusion of her right external iliac vein. Because of the finding of Rt ureteral obstruction, Dr. Mckeon referred to my office for evaluation and management. The patient has been totally asymptomatic from her kidneys having no flank pain and no voiding symptoms. She does not have any hematuria. Her renal function was also normal with serum creatinine of 0.9. On physical exam, she had no CVA tenderness. Abdominal exam was normal. Please refer to Dr. Fox's history and physical regarding the patient's medical condition. The patient has been maintained on Xarelto because of her venous occlusive disease. IMPRESSION: New finding of distal right ureteral obstruction with asymptomatic right hydroureteronephrosis. The differential diagnosis of the obstruction scarring from her venous occlusive disease, less likely recurrent uterine carcinoma. The plan is for cystoscopy, right retrograde pyelography to evaluate the location, the size, and the possible etiology of the ureteral obstruction. Balloon dilation of the stricture will be performed with placement of a right ureteral stent. A reevaluation by Gynecology would be needed to rule out recurrent pelvic tumor. I discussed the above plans in detail with the patient. Some of the potential complications of the procedure, and the side effects of the right ureteral stent were discussed namely hematuria, flank and bladder pain. The patient also understands that the stent will need to be replaced periodically if needed. All her questions were answered. [id number]/[place] #: [id number] SRIKANTH
[~2019-08-16 05:49] MED LIST changes: +Buffered Lidocaine 1% SYRIN* 1 ML/SYRINGE INTRADERM ONE; -Flumazenil* 0.1 MG/ML 5 ML MDV ONE; -Heparin 2 UNITS/ML IVPREMIX* 2,000 ML IV ONE; -Iodixanol 320 (CONTRAST) 100 ML SDV ONE; -Iohexol 350 (CONTRAST) 200 ML MDV IV ONE; -Lidocaine 1% INJ* 10 MG/ML 30 ML SDV ONE; -Midazolam* 1 MG/ML 5 ML VIAL (5 MG) ONE; -Naloxone* 0.4 MG/ML 1 ML VIAL ONE; -fentaNYL* 50 MCG/ML 2 ML VIAL (100 MCG VIAL) ONE
[2019-08-16] MEDS ORDERED: Lactated Ringers 1000 ML Bag* 1,000 ML IV SCH (06:00)
[2019-08-16] MEDS ORDERED: Levofloxacin 750 MG IVPREMIX(* 750 MG/150 ML BAG ONE (06:26)
[2019-08-16] MEDS ORDERED: fentaNYL* 50 MCG/ML 2 ML VIAL (100 MCG VIAL) ONE (07:19)
[2019-08-16] MEDS ORDERED: Iohexol 180 (CONTRAST) 10 ML SDV IV ONE (07:20)
[2019-08-16] MEDS ORDERED: Naloxone* 0.4 MG/ML 1 ML VIAL IV PRN (07:26)
[2019-08-16] MEDS ORDERED: HYDROmorphone INJ1* 1 MG/ML SYRINGE IV PRN (07:26)
[2019-08-16] MEDS ORDERED: Ondansetron INJ* 2 MG/ML VIAL ONE (08:26)
[2019-08-16] MEDS ORDERED: Dexamethasone IV* 4 MG/ML 1 ML (4 MG) ONE (08:26)
[2019-08-16] MEDS ORDERED: Lidocaine 2% PF * 5 ML VIAL ONE (08:26)
[2019-08-16] MEDS ORDERED: Propofol* 10 MG/ML 20 ML BTL ONE (08:26)
[2019-08-16] MEDS ORDERED: Etomidate* 2 MG/ML 10 ML VIAL ONE (08:26)
[2019-08-16] MEDS ORDERED: Oxybutynin TAB* 5 MG ONE (08:58)
[2019-08-16 09:06] VITALS: BP 160/112
--- NOTE | 2019-08-16 17:33 | OP ---
CC: Dr. Fox; Dr. Mckeon * DATE OF OPERATION: 08/16/19 - [facility] DATE OF : 43 SURGEON: Ru Parson MD ANESTHESIOLOGIST: Dr. Ordoñez ANESTHESIA: General PRE-OP DIAGNOSES: 1. Distal right ureteral stricture. 2. Right hydroureteronephrosis due to above. POST-OP DIAGNOSES: 1. Distal right ureteral stricture secondary to extrinsic pathology. 2. Right hydroureteronephrosis due to above. OPERATIVE PROCEDURE: 1. Cystoscopy. 2. Right retrograde pyelography. 3. Right ureteroscopy. 4. Balloon dilation of distal right ureteral stricture. 5. Insertion of right ureteral stent (black silicon, 24 cm, 8.5 Welsh) INDICATIONS FOR PROCEDURE: Ms. 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 She underwent a radical hysterectomy. Her pathology was favorable, and she did not need any radiation or chemotherapy postoperatively. She did very well without evidence of recurrent disease and her last CT of the abdomen and pelvis was done in December 2018 showing no recurrent disease, and no hydronephrosis or ureteral obstruction. The patient had required venous endovascular stenting of her right external iliac vein for obstruction by Dr. Mckeon from [facility] . A recent CT scan showed a new finding of right hydroureteronephrosis with the obstruction lat the level of the distal ureter and there was some adjacent scarring but no masses around the site of the obstruction. Because of the above history, the patient is brought in for the above procedure. PATHOLOGY: Pelvic exam under anesthesia showed no pelvic masses. At cystoscopy, the bladder mucosa looked normal. There were no suspicious bladder lesions seen. Both ureteral orifices looked normal. Upon right retrograde pyelography, a tight stricture was noted about 2-3 cm proximal to the level of the ureteral orifice. There was significant hold up of contrast and dilated ureter just proximal to the stricture. There was also tortuosity of the proximal ureter and moderate right hydronephrosis. Upon right ureteroscopy, there was scarring noted within the area of the stricture extending for a distance of about 1 cm. No intrinsic ureteral lesions were noted. There was some hyperemia and edema of the ureteral mucosa at the transitional point between the dilated and the strictured portions of the ureter. No abnormal filling defects were noted in the dilated ureter or in the collecting system. The stricture was successfully balloon dilated with minimal waisting. DESCRIPTION OF PROCEDURE: After successful general anesthesia, the patient was placed in the lithotomy position and was prepped and draped for cystoscopy. Cystoscopy was performed. The bladder was carefully inspected and the above findings were noted. A flexible-tip guidewire was then introduced into the right orifice and then open ended catheter positioned just proximal to the ureteral orifice. Retrograde pyelography was then performed demonstrating the ureteral pathology. Delayed x-ray pictures were also obtained demonstrating the hold up of contrast in the dilated ureter, proximal to the stricture. A glidewire was then introduced into the right orifice and after several attempts was successfully introduced inside the collecting system, past the tortuosity and straightening the ureter. The glidewire was then replaced with a guidewire. A Size 6.5 semi-rigid tapered ureteroscope was then introduced inside the bladder. The ureteroscope was introduced without difficulty inside the right ureteral orifice, the ureter was then inspected, the site of the stricture was noted and was bypassed with the ureteroscope into the dilated portion of the ureter. The above pathology was noted. The ureteroscope was then removed keeping the guidewire in place. The cystoscope was introduced over the guidewire. A 24-Welsh balloon dilator was then fed on top of the guidewire and the balloon was positioned above and below the stricture. The balloon was then gently inflated and there was a relatively easy dilation of the stricture without any waisting. The balloon was kept inflated for about 2 minutes, this was then deflated and removed keeping the guidewire in place. A black silicone stent, 24 cm long, 8.5-Welsh was then fed on top of the guidewire and positioned with the proximal end coiling in the renal pelvis and the distal end coiling inside the bladder. There was good drainage of contrast and no extravasation noted from the dilation site. The patient tolerated the procedure well and left the operating room in good condition. The patient needs to be followed to see if the balloon dilation is successful in correcting the stricture. The ureteral stricture seems to be due to fibrosis as no masses were noted on the CT scan, and pelvic examination at the time of this procedure showed no pelvic masses. The patient still will have to be followed with periodic CT scan to rule out any pelvic pathology. [id number]/[facility] #: [id number] [facility] PS[facility]CH[facility]ATR[facility] CENTERJulia
== END 2019-08-16 09:40 | disposition home or self-care (01) ==
LOC: OR 05:49
PROVIDERS: ATTEND Urology
DX: N13.1 Hydronephrosis with ureteral stricture, not elsewhere classified (principal); Z85.42 Personal history of malignant neoplasm of other parts of uterus; I10 Essential (primary) hypertension; J45.909 Unspecified asthma, uncomplicated; M19.90 Unspecified osteoarthritis, unspecified site; Z86.718 Personal history of other venous thrombosis and embolism; Z79.01 Long term (current) use of anticoagulants; E78.5 Hyperlipidemia, unspecified; Z87.891 Personal history of nicotine dependence
CPT/HCPCS: 74420; A9270-GY; C1876; J1100; J2405; J2704; J3010

== ENCOUNTER 2020-10-19 16:04 | Observation (INO) ==
[2020-10-19] MEDS ORDERED: NS 0.9% 1000 ml BAG 1,000 ML IV ONE (16:13)
[2020-10-19 16:39] LABS: ABS Basophils 0.1 10^3/ul (0-0.2); ABS Eosinophils 0.1 10^3/ul (0-0.6); ABS Lymphocytes 1.7 10^3/ul (1.0-4.8); ABS Monocytes 0.6 10^3/ul (0-0.8); ABS Neutrophils 4.7 10^3/ul (1.5-7.7); Hematocrit 34 % (35-47); Hemoglobin 11.3 g/dL (12.0-16.0); Lymphocyte % 23.5 %; Mean Corpuscular HGB Conc 34 g/dL (31-36); Mean Corpuscular Hemoglobin 29 pg (27-31); Mean Corpuscular Volume 87 fL (80-97); Mean Platelet Volume 8.5 fL (7.4-10.4); Platelet Count 310 10^3/uL (150-450); Red Blood Count 3.88 10^6 /uL (3.70-4.87); Red Cell Distribution Width 15 % (10-15); White Blood Count 7.1 10^3/uL (3.5-10.8)
[2020-10-19 16:47] LABS: Activated Partial Thrombo Time 44.9 seconds (26.0-38.0); INR 1.64 (0.82-1.09)
[2020-10-19 17:07] LABS: Albumin 4.5 g/dL (3.2-5.2); Albumin/Globulin Ratio 1.1 (1-3); BUN/Creatinine Ratio 22.4 (8-20); Calcium 10.2 mg/dL (8.6-10.3); EGFR Non-African American 45.4 (>60); HDL Cholesterol 39.8 mg/dL; Potassium 3.6 mmol/L (3.5-5.0); Total Bilirubin 0.3 mg/dL (0.2-1.0); Total Protein 8.5 g/dL (6.4-8.9)
[2020-10-19 17:34] LABS: C Reactive Protein 11.24 mg/L (<8.01)
[2020-10-19] MEDS ORDERED: Iodixanol (CONTRAST) 320 MG/ML 100 ML SDV IV ONE (18:24)
[2020-10-19 18:45] LABS: Urine Amorphous Crystals Present (Absent); Urine Appearance Clear; Urine Bacteria Absent (Absent); Urine Bilirubin Negative (Negative); Urine Blood 1+ (Negative); Urine Color Straw; Urine Glucose Negative (Negative); Urine Ketones Negative (Negative); Urine Nitrite Negative (Negative); Urine Protein 2+(100 mg/dL) (Negative); Urine Red Blood Cell 3+(>10/hpf) (Absent); Urine Specific Gravity 1.008 (1.002-1.030); Urine Squamous Epithelial Cell Present (Absent); Urine Urobilinogen Negative (Negative); Urine White Blood Cell Trace(0-5/hpf) (Absent)
[2020-10-19 19:28] LABS: Erythrocyte Sed Rate > 120 mm/Hr (0-29)
[2020-10-19] MEDS ORDERED: NS 0.9% 1000 ml BAG 1,000 ML IV SCH (21:30)
[2020-10-19 22:42] LABS: Magnesium 2.2 mg/dL (1.9-2.7)
[2020-10-20 05:58] LABS: ABS Basophils 0.1 10^3/ul (0-0.2); ABS Lymphocytes 1.5 10^3/ul (1.0-4.8); ABS Monocytes 0.6 10^3/ul (0-0.8); ABS Neutrophils 4.3 10^3/ul (1.5-7.7); Eosinophil % 0.5 %; Hematocrit 34 % (35-47); Hemoglobin 11.5 g/dL (12.0-16.0); Lymphocyte % 23.4 %; Mean Corpuscular HGB Conc 34 g/dL (31-36); Mean Corpuscular Hemoglobin 29 pg (27-31); Mean Corpuscular Volume 88 fL (80-97); Mean Platelet Volume 7.8 fL (7.4-10.4); Platelet Count 290 10^3/uL (150-450); Red Blood Count 3.92 10^6 /uL (3.70-4.87); Red Cell Distribution Width 15 % (10-15); White Blood Count 6.5 10^3/uL (3.5-10.8)
[2020-10-20 06:12] LABS: BUN/Creatinine Ratio 17.9 (8-20); EGFR African American 69.2 (>60); EGFR Non-African American 57.2 (>60); Potassium 3.5 mmol/L (3.5-5.0)
[2020-10-20 11:09] VITALS: BP 140/77
== END 2020-10-20 14:00 | disposition home or self-care (01) ==
LOC: MEDTELE 16:04 → ED 16:04 → MEDTELE 23:12
PROVIDERS: ADMIT Internal Medicine; ATTEND Hospitalist

== ENCOUNTER 2021-08-30 13:00 | Inpatient (IN) ==
[2021-08-30] MEDS ORDERED: Morphine 4 MG/ML VIAL (1 ml) IV ONE ×2 (13:53→16:13)
[2021-08-30 14:32] LABS: ABS Basophils 0.1 10^3/ul (0-0.2); ABS Eosinophils 0.1 10^3/ul (0-0.6); ABS Lymphocytes 0.7 10^3/ul (1.0-4.8); ABS Monocytes 0.4 10^3/ul (0-0.8); ABS Neutrophils 9.4 10^3/ul (1.5-7.7); Eosinophil % 1.1 %; Hematocrit 33 % (35-47); Hemoglobin 11.2 g/dL (12.0-16.0); Lymphocyte % 6.4 %; Mean Corpuscular HGB Conc 34 g/dL (31-36); Mean Corpuscular Hemoglobin 34 pg (27-31); Mean Corpuscular Volume 100 fL (80-97); Mean Platelet Volume 8.3 fL (7.4-10.4); Platelet Count 225 10^3/uL (150-450); Red Blood Count 3.31 10^6 /uL (3.70-4.87); Red Cell Distribution Width 19 % (10-15); White Blood Count 10.7 10^3/uL (3.5-10.8)
[2021-08-30 14:38] LABS: Albumin 4.4 g/dL (3.2-5.2); Calcium 9.9 mg/dL (8.6-10.3); Potassium 3.8 mmol/L (3.5-5.0); Total Bilirubin 0.4 mg/dL (0.2-1.0)
[2021-08-30 14:44] LABS: Albumin/Globulin Ratio 1.4 (1-3); Globulin 3.1 g/dL (2-4); Total Protein 7.5 g/dL (6.4-8.9); eGFR CKD-EPI 78.7 (>60)
[2021-08-30 14:50] LABS: Activated Partial Thrombo Time 40.5 seconds (26.0-38.0); INR 1.85 (0.86-1.15)
[2021-08-30] MEDS ORDERED: Lorazepam PYXIS KEY PRN (15:02)
[2021-08-30] MEDS ORDERED: LORazepam 2 mg VIAL 1 ml IV PUSH ONE (15:02)
[2021-08-30] MEDS ORDERED: hydrALAZINE 20 mg/ml 1 ML Vial IV IV SLOW PU ONE (16:12)
[2021-08-30] MEDS ORDERED: Labetalol IV 5 MG/ML 20 ml VIAL IV PUSH ONE (17:36)
[2021-08-30] MEDS ORDERED: Ondansetron 4 mg VIAL 2 MG/ML 2 ml VIAL IV PRN (18:04)
[2021-08-30 18:24] LABS: Urine Appearance Clear; Urine Bilirubin Negative (Negative); Urine Blood Negative (Negative); Urine Color Yellow; Urine Glucose Negative (Negative); Urine Ketones Negative (Negative); Urine Nitrite Negative (Negative); Urine Protein 2+(100 mg/dL) (Negative); Urine Urobilinogen Negative (Negative)
[2021-08-30 18:32] LABS: Urine Bacteria Absent (Absent); Urine Red Blood Cell Absent (Absent); Urine Squamous Epithelial Cell Present (Absent); Urine White Blood Cell 1+(6-10/hpf) (Absent)
[2021-08-30] MEDS ORDERED: hydrALAZINE 20 mg/ml 1 ML Vial IV IV SLOW PU PRN (18:35)
[2021-08-30] MEDS ORDERED: Enoxaparin 80 MG/0.8 ML SYR SUBCUT ONE (22:00)
[2021-08-31] MEDS ORDERED: Clindamycin 600 MG/D5W BAG IV SCH (02:45)
[2021-08-31 04:39] LABS: ABS Basophils 0.1 10^3/ul (0-0.2); ABS Eosinophils 0.1 10^3/ul (0-0.6); ABS Lymphocytes 1.2 10^3/ul (1.0-4.8); ABS Monocytes 0.9 10^3/ul (0-0.8); ABS Neutrophils 4.7 10^3/ul (1.5-7.7); Eosinophil % 1.1 %; Hematocrit 29 % (35-47); Hemoglobin 9.8 g/dL (12.0-16.0); Lymphocyte % 17.6 %; Mean Corpuscular HGB Conc 34 g/dL (31-36); Mean Corpuscular Hemoglobin 34 pg (27-31); Mean Corpuscular Volume 101 fL (80-97); Mean Platelet Volume 8.2 fL (7.4-10.4); Platelet Count 195 10^3/uL (150-450); Red Blood Count 2.88 10^6 /uL (3.70-4.87); Red Cell Distribution Width 19 % (10-15); White Blood Count 6.9 10^3/uL (3.5-10.8)
[2021-08-31 04:44] LABS: INR 1.44 (0.86-1.15)
[2021-08-31 05:08] LABS: Calcium 9.3 mg/dL (8.6-10.3); Potassium 3.5 mmol/L (3.5-5.0)
[2021-08-31 05:14] LABS: eGFR CKD-EPI 75.2 (>60)
[2021-08-31] MEDS: Lactated Ringers 1000 ml BAG 1,000 ML IV SCH ×2 (05:21→23:37)
[2021-08-31] MEDS: Acetaminophen IV 1 GM/100ML 100 ML IV PRN (08:39)
[2021-08-31] MEDS ORDERED: Lidocaine 2% PF 5 ML VIAL ONE (15:56)
[2021-08-31] MEDS ORDERED: Propofol 10 MG/ML 20 ML BTL ONE (15:56)
[2021-08-31] MEDS ORDERED: fentaNYL 250 mcg/5 ml 50 MCG/ML 5 ml VIAL (250 MCG) ONE (15:56)
[2021-08-31] MEDS ORDERED: Ketamine HCL 50 mg/ml 10 ml VIAL (500 MG) ONE (15:57)
[2021-08-31] MEDS ORDERED: Clindamycin 900 MG/D5W BAG 900 MG/50 ML BAG IVPB ONE (16:04)
[2021-08-31] MEDS ORDERED: Bupivacaine 0.5% W/EPI SDV 10 ML VIAL INJ ONE (18:03)
[2021-08-31] MEDS ORDERED: Bupivacaine 0.25% SDV 30 ML ONE (18:04)
[2021-08-31] MEDS ORDERED: EPHEDrine (Pressors) 50 MG/ML VIAL ONE (18:54)
[2021-08-31] MEDS ORDERED: Phenylephrine IV 10 MG/ML 1 ml VIAL ONE (19:04)
[2021-08-31] MEDS ORDERED: Prochlorperazine 5 mg/ml 2 ml VIAL (10 mg) IV PRN (20:41)
[2021-08-31] MEDS ORDERED: Naloxone 0.4 mg VIAL 0.4 mg/ml 1 ml VIAL IV PRN (20:41)
[2021-08-31] MEDS ORDERED: HYDROcodone/ACETAMIN 5/325 mg TAB PO PRN (20:41)
[2021-08-31] MEDS ORDERED: oxyCODONE/Acetamin 5/325 mg TAB PO PRN (20:41)
[2021-08-31] MEDS ORDERED: fentaNYL 100 mcg/2 ml 50 MCG/ML VIAL IV PRN (20:41)
[2021-08-31] MEDS ORDERED: Morphine 4 MG/ML VIAL (1 ml) IV PRN (20:41)
[2021-08-31 21:39] LABS: Hematocrit 29 % (35-47); Hemoglobin 9.7 g/dL (12.0-16.0)
[2021-09-01] MEDS: Clindamycin 600 MG/D5W BAG IV SCH ×3 (03:48→20:08)
[2021-09-01 05:57] LABS: ABS Lymphocytes 0.6 10^3/ul (1.0-4.8); ABS Monocytes 1.1 10^3/ul (0-0.8); ABS Neutrophils 7.8 10^3/ul (1.5-7.7); Hematocrit 24 % (35-47); Hemoglobin 7.9 g/dL (12.0-16.0); Lymphocyte % 6.8 %; Mean Corpuscular HGB Conc 34 g/dL (31-36); Mean Corpuscular Hemoglobin 34 pg (27-31); Mean Corpuscular Volume 100 fL (80-97); Mean Platelet Volume 8.2 fL (7.4-10.4); Platelet Count 169 10^3/uL (150-450); Red Blood Count 2.35 10^6 /uL (3.70-4.87); Red Cell Distribution Width 18 % (10-15); White Blood Count 9.5 10^3/uL (3.5-10.8)
[2021-09-01 06:17] LABS: Calcium 8.5 mg/dL (8.6-10.3); Magnesium 1.2 mg/dL (1.9-2.7); Potassium 3.7 mmol/L (3.5-5.0)
[2021-09-01 06:23] LABS: eGFR CKD-EPI 83.3 (>60)
[2021-09-01] MEDS ORDERED: Magnesium Sulf 4 GM/100 ML IV 4,000 MG/100 ML BAG IVPB ONE (07:06)
[2021-09-01] MEDS ORDERED: Senna TAB 8.6 mg TAB PO PRN (09:09)
[2021-09-01] MEDS ORDERED: Polyethylene Glycol 3350 17 GM PACKET PO PRN (09:09)
[2021-09-01] MEDS ORDERED: Magnesium Hydroxide LIQ 30 ML UDC PO PRN (09:09)
[2021-09-01] MEDS: Enoxaparin 80 MG/0.8 ML SYR SUBCUT SCH (12:37)
[2021-09-01] MEDS: Acetaminophen IV 1 GM/100ML 100 ML IV PRN (12:55)
[2021-09-01] MEDS: Iron Sucrose 200 MG in NS 0.9% 100 ml BAG 100 ML IVPB SCH (13:14)
[2021-09-02] MEDS: Enoxaparin 80 MG/0.8 ML SYR SUBCUT SCH ×2 (00:40→21:44)
[2021-09-02] MEDS: Acetaminophen IV 1 GM/100ML 100 ML IV PRN (05:08)
[2021-09-02 05:41] LABS: ABS Eosinophils 0.1 10^3/ul (0-0.6); ABS Lymphocytes 0.8 10^3/ul (1.0-4.8); ABS Neutrophils 5.3 10^3/ul (1.5-7.7); Eosinophil % 0.8 %; Hematocrit 20 % (35-47); Hemoglobin 6.8 g/dL (12.0-16.0); Lymphocyte % 11.5 %; Mean Corpuscular HGB Conc 34 g/dL (31-36); Mean Corpuscular Hemoglobin 33 pg (27-31); Mean Corpuscular Volume 100 fL (80-97); Mean Platelet Volume 8.8 fL (7.4-10.4); Nucleated Red Blood Cells % 0.1; Platelet Count 146 10^3/uL (150-450); Red Blood Count 2.05 10^6 /uL (3.70-4.87); Red Cell Distribution Width 17 % (10-15); White Blood Count 7.2 10^3/uL (3.5-10.8)
[2021-09-02 06:16] LABS: Potassium 3.4 mmol/L (3.5-5.0)
[2021-09-02 06:17] LABS: Calcium 8.1 mg/dL (8.6-10.3)
[2021-09-02 06:23] LABS: eGFR CKD-EPI 66.7 (>60)
[2021-09-02] MEDS ORDERED: Potassium Chloride LIQUID 20 MEQ/15 ML LIQUID PO ONE (07:11)
[2021-09-02] MEDS: Iron Sucrose 200 MG in NS 0.9% 100 ml BAG 100 ML IVPB SCH (07:25)
[2021-09-02 15:21] LABS: Hematocrit 25 % (35-47); Hemoglobin 8.7 g/dL (12.0-16.0)
[2021-09-03 08:19] VITALS: BP 122/77
[2021-09-03] MEDS: Enoxaparin 80 MG/0.8 ML SYR SUBCUT SCH (08:47)
[2021-09-03 09:03] LABS: ABS Eosinophils 0.1 10^3/ul (0-0.6); ABS Lymphocytes 0.7 10^3/ul (1.0-4.8); ABS Monocytes 0.6 10^3/ul (0-0.8); ABS Neutrophils 5.5 10^3/ul (1.5-7.7); Hematocrit 27 % (35-47); Hemoglobin 9.2 g/dL (12.0-16.0); Lymphocyte % 10.5 %; Mean Corpuscular HGB Conc 34 g/dL (31-36); Mean Corpuscular Hemoglobin 33 pg (27-31); Mean Corpuscular Volume 99 fL (80-97); Mean Platelet Volume 8.4 fL (7.4-10.4); Platelet Count 203 10^3/uL (150-450); Red Blood Count 2.76 10^6 /uL (3.70-4.87); Red Cell Distribution Width 18 % (10-15)
[2021-09-03 09:38] LABS: Calcium 8.5 mg/dL (8.6-10.3); Magnesium 1.7 mg/dL (1.9-2.7); eGFR CKD-EPI 75.8 (>60)
== END 2021-09-03 10:52 | DRG 481 ==
LOC: ED 13:00 → EDHOLD 18:04 → SUATTDRO 18:04 → SSU 20:06
PROVIDERS: ADMIT Hospitalist; ATTEND Internal Medicine

== ENCOUNTER 2021-09-03 07:43 | Inpatient (IN) ==
[2021-09-03] MEDS ORDERED: Al Hydrox/Mg Hydrox/Simet LIQ 30 ML UDC PO PRN (12:08)
[2021-09-03] MEDS: Calcium/Vitamin D TAB 250/125 TAB PO SCH (20:50)
[2021-09-04 06:41] LABS: ABS Eosinophils 0.2 10^3/ul (0-0.6); ABS Monocytes 0.5 10^3/ul (0-0.8); ABS Neutrophils 3.3 10^3/ul (1.5-7.7); Hematocrit 24 % (35-47); Hemoglobin 8.3 g/dL (12.0-16.0); Lymphocyte % 19.7 %; Mean Corpuscular HGB Conc 34 g/dL (31-36); Mean Corpuscular Hemoglobin 34 pg (27-31); Mean Corpuscular Volume 100 fL (80-97); Mean Platelet Volume 8.5 fL (7.4-10.4); Nucleated Red Blood Cells % 0.1; Platelet Count 196 10^3/uL (150-450); Red Blood Count 2.45 10^6 /uL (3.70-4.87); Red Cell Distribution Width 18 % (10-15); White Blood Count 5.1 10^3/uL (3.5-10.8)
[2021-09-04 07:49] LABS: Calcium 8.5 mg/dL (8.6-10.3); Total Bilirubin 0.5 mg/dL (0.2-1.0)
[2021-09-04 07:53] LABS: Albumin/Globulin Ratio 1.3 (1-3); Globulin 2.3 g/dL (2-4); Total Protein 5.3 g/dL (6.4-8.9)
[2021-09-04 07:54] LABS: eGFR CKD-EPI 80.7 (>60)
[2021-09-04] MEDS: Calcium/Vitamin D TAB 250/125 TAB PO SCH ×2 (09:25→19:56)
[2021-09-04] MEDS: Magnesium Hydroxide LIQ 30 ML UDC PO PRN ×2 (13:51→19:51)
[2021-09-05] MEDS: Ondansetron ODT 4 mg TAB 4 MG TAB SL PRN (04:26)
[2021-09-05 06:29] LABS: Hematocrit 24 % (35-47); Hemoglobin 8.2 g/dL (12.0-16.0)
[2021-09-05] MEDS: Calcium/Vitamin D TAB 250/125 TAB PO SCH ×2 (08:17→20:18)
[2021-09-06 06:17] LABS: ABS Eosinophils 0.3 10^3/ul (0-0.6); ABS Lymphocytes 0.9 10^3/ul (1.0-4.8); ABS Monocytes 0.5 10^3/ul (0-0.8); ABS Neutrophils 2.2 10^3/ul (1.5-7.7); Corrected Retic Count 2.3 % (0.5-1.5); Eosinophil % 6.6 %; Hematocrit 24 % (35-47); Hematocrit for Retic CNT 24 % (35-47); Immature Retic Fraction 0.67; Lymphocyte % 22.6 %; Mean Corpuscular HGB Conc 33 g/dL (31-36); Mean Corpuscular Hemoglobin 33 pg (27-31); Mean Corpuscular Volume 101 fL (80-97); Nucleated Red Blood Cells % 0.1; Platelet Count 214 10^3/uL (150-450); RBC Retic Count 2.42 10^6/uL (3.70-4.87); Red Blood Count 2.42 10^6 /uL (3.70-4.87); Red Cell Distribution Width 18 % (10-15); White Blood Count 3.8 10^3/uL (3.5-10.8)
[2021-09-06 06:44] LABS: Albumin 2.9 g/dL (3.2-5.2); Albumin/Globulin Ratio 1.4 (1-3); Calcium 8.3 mg/dL (8.6-10.3); Globulin 2.1 g/dL (2-4); Magnesium 1.5 mg/dL (1.9-2.7); Potassium 4.1 mmol/L (3.5-5.0); Total Bilirubin 0.5 mg/dL (0.2-1.0); eGFR CKD-EPI 87.5 (>60)
[2021-09-06 07:03] LABS: Ferritin 550.9 ng/mL (11-307)
[2021-09-06] MEDS: Calcium/Vitamin D TAB 250/125 TAB PO SCH ×2 (08:21→20:26)
[2021-09-06] MEDS: Senna TAB 8.6 mg TAB PO PRN (20:26)
[2021-09-06] MEDS: Magnesium Hydroxide LIQ 30 ML UDC PO PRN (20:26)
[2021-09-07] MEDS: Calcium/Vitamin D TAB 250/125 TAB PO SCH ×2 (08:30→20:58)
[2021-09-07] MEDS: Ondansetron ODT 4 mg TAB 4 MG TAB SL PRN ×2 (08:34→08:38)
[2021-09-08] MEDS: Ondansetron ODT 4 mg TAB 4 MG TAB SL PRN (06:58)
[2021-09-08] MEDS: Calcium/Vitamin D TAB 250/125 TAB PO SCH ×2 (10:32→20:06)
[2021-09-08] MEDS: Magnesium Hydroxide LIQ 30 ML UDC PO PRN (10:38)
[2021-09-08] MEDS: Senna TAB 8.6 mg TAB PO PRN ×2 (10:39→22:18)
[2021-09-09] MEDS: Calcium/Vitamin D TAB 250/125 TAB PO SCH ×2 (07:40→20:14)
[2021-09-09] MEDS: Magnesium Hydroxide LIQ 30 ML UDC PO PRN (20:12)
[2021-09-10 07:13] LABS: ABS Eosinophils 0.1 10^3/ul (0-0.6); ABS Monocytes 0.6 10^3/ul (0-0.8); ABS Neutrophils 3.1 10^3/ul (1.5-7.7); Hematocrit 25 % (35-47); Hemoglobin 8.5 g/dL (12.0-16.0); Lymphocyte % 19.8 %; Mean Corpuscular HGB Conc 34 g/dL (31-36); Mean Corpuscular Hemoglobin 34 pg (27-31); Mean Corpuscular Volume 99 fL (80-97); Mean Platelet Volume 7.9 fL (7.4-10.4); Platelet Count 273 10^3/uL (150-450); Red Blood Count 2.51 10^6 /uL (3.70-4.87); Red Cell Distribution Width 17 % (10-15); White Blood Count 4.8 10^3/uL (3.5-10.8)
[2021-09-10] MEDS: Calcium/Vitamin D TAB 250/125 TAB PO SCH ×2 (08:03→20:47)
[2021-09-10] MEDS: Ondansetron ODT 4 mg TAB 4 MG TAB SL PRN (08:12)
[2021-09-10] MEDS: Magnesium Hydroxide LIQ 30 ML UDC PO PRN (20:46)
[2021-09-11] MEDS: Calcium/Vitamin D TAB 250/125 TAB PO SCH ×2 (07:37→20:07)
[2021-09-12] MEDS: Calcium/Vitamin D TAB 250/125 TAB PO SCH ×2 (08:48→20:57)
[2021-09-12] MEDS: Ondansetron ODT 4 mg TAB 4 MG TAB SL PRN (08:51)
[2021-09-13 06:33] LABS: ABS Eosinophils 0.2 10^3/ul (0-0.6); ABS Lymphocytes 1.2 10^3/ul (1.0-4.8); ABS Monocytes 0.5 10^3/ul (0-0.8); ABS Neutrophils 2.7 10^3/ul (1.5-7.7); Eosinophil % 4.5 %; Hematocrit 29 % (35-47); Hemoglobin 9.6 g/dL (12.0-16.0); Lymphocyte % 25.6 %; Mean Corpuscular HGB Conc 34 g/dL (31-36); Mean Corpuscular Hemoglobin 34 pg (27-31); Mean Corpuscular Volume 99 fL (80-97); Mean Platelet Volume 7.7 fL (7.4-10.4); Platelet Count 322 10^3/uL (150-450); Red Blood Count 2.87 10^6 /uL (3.70-4.87); Red Cell Distribution Width 17 % (10-15); White Blood Count 4.6 10^3/uL (3.5-10.8)
[2021-09-13 07:09] LABS: Albumin 3.3 g/dL (3.2-5.2); Albumin/Globulin Ratio 1.4 (1-3); Globulin 2.4 g/dL (2-4); Magnesium 1.7 mg/dL (1.9-2.7); Potassium 4.4 mmol/L (3.5-5.0); Total Bilirubin 0.4 mg/dL (0.2-1.0); Total Protein 5.7 g/dL (6.4-8.9); eGFR CKD-EPI 56.7 (>60)
[2021-09-13] MEDS: Calcium/Vitamin D TAB 250/125 TAB PO SCH ×2 (08:26→20:12)
[2021-09-13] MEDS: Magnesium Hydroxide LIQ 30 ML UDC PO PRN ×2 (08:46→21:42)
[2021-09-13 15:16] VITALS: BP 149/76
[2021-09-14] MEDS: Calcium/Vitamin D TAB 250/125 TAB PO SCH (08:59)
[2021-09-14] MEDS: Ondansetron ODT 4 mg TAB 4 MG TAB SL PRN (09:04)
== END 2021-09-14 15:50 | disposition home or self-care (01) | DRG 560 ==
LOC: PMRU 10:53
PROVIDERS: ADMIT Physical Medicine & Rehabilitation; ATTEND Physical Medicine & Rehabilitation

== ENCOUNTER 2022-01-26 11:49 | Observation (INO) ==
[2022-01-26 12:39] LABS: ABS Eosinophils 0.1 10^3/ul (0-0.6); ABS Lymphocytes 0.6 10^3/ul (1.0-4.8); ABS Monocytes 0.6 10^3/ul (0-0.8); Eosinophil % 2.2 %; Hematocrit 34 % (35-47); Hemoglobin 11.6 g/dL (12.0-16.0); Mean Corpuscular HGB Conc 34 g/dL (31-36); Mean Corpuscular Hemoglobin 32 pg (27-31); Mean Corpuscular Volume 94 fL (80-97); Nucleated Red Blood Cells % 0.1; Platelet Count 230 10^3/uL (150-450); Red Blood Count 3.65 10^6 /uL (3.70-4.87); Red Cell Distribution Width 14 % (10-15); White Blood Count 4.4 10^3/uL (3.5-10.8)
[2022-01-26] MEDS ORDERED: NS 0.9% 1000 ml BAG 1,000 ML IV ONE (12:39)
[2022-01-26] MEDS ORDERED: methylPREDNISolone SOD SUCC 125 mg 2 ML VIAL IV ONE ×2 (13:03→13:35)
[2022-01-26] MEDS ORDERED: Ondansetron 4 mg VIAL 2 MG/ML 2 ml VIAL IV PRN (13:25)
[2022-01-26 17:39] LABS: Albumin 4.7 g/dL (3.2-5.2); Magnesium 2.1 mg/dL (1.9-2.7)
[2022-01-26] MEDS: NS 0.9% 1000 ml BAG 1,000 ML IV SCH (17:39)
[2022-01-26 17:45] LABS: Albumin/Globulin Ratio 1.5 (1-3); Globulin 3.2 g/dL (2-4); Total Protein 7.9 g/dL (6.4-8.9)
[2022-01-26 17:49] LABS: Calcium 9.4 mg/dL (8.6-10.3); Potassium 3.5 mmol/L (3.5-5.0); Total Bilirubin 0.3 mg/dL (0.2-1.0); eGFR CKD-EPI 12.5 (>60)
[2022-01-27] MEDS: NS 0.9% 1000 ml BAG 1,000 ML IV SCH (04:03)
[2022-01-27 06:09] LABS: ABS Lymphocytes 0.6 10^3/ul (1.0-4.8); ABS Monocytes 0.1 10^3/ul (0-0.8); ABS Neutrophils 2.2 10^3/ul (1.5-7.7); Eosinophil % 0.1 %; Hematocrit 30 % (35-47); Lymphocyte % 21.3 %; Mean Corpuscular HGB Conc 34 g/dL (31-36); Mean Corpuscular Hemoglobin 32 pg (27-31); Mean Corpuscular Volume 93 fL (80-97); Mean Platelet Volume 8.6 fL (7.4-10.4); Nucleated Red Blood Cells % 0.1; Platelet Count 213 10^3/uL (150-450); Red Blood Count 3.17 10^6 /uL (3.70-4.87); Red Cell Distribution Width 14 % (10-15); White Blood Count 2.9 10^3/uL (3.5-10.8)
[2022-01-27 06:49] LABS: Calcium 8.7 mg/dL (8.6-10.3); Potassium 3.3 mmol/L (3.5-5.0); eGFR CKD-EPI 35.7 (>60)
[2022-01-27 09:25] LABS: Magnesium 1.8 mg/dL (1.9-2.7)
[2022-01-27 11:52] VITALS: BP 125/55
== END 2022-01-27 13:55 | disposition home or self-care (01) ==
LOC: EDHOLD 11:49 → ED 11:49 → EDHOLD 14:43 → MEDTELE 15:56
PROVIDERS: ADMIT Internal Medicine Hematology & Oncology; ATTEND Internal Medicine Hematology & Oncology

== ENCOUNTER 2022-06-20 14:04 | Inpatient (IN) ==
[2022-06-20 14:27] LABS: ABS Basophils 0.1 10^3/ul (0-0.2); ABS Neutrophils 5.4 10^3/ul (1.5-7.7); Eosinophil % 0.2 %; Hematocrit 37 % (35-47); Hemoglobin 12.5 g/dL (12.0-16.0); Lymphocyte % 12.8 %; Mean Corpuscular HGB Conc 34 g/dL (31-36); Mean Corpuscular Hemoglobin 32 pg (27-31); Mean Corpuscular Volume 94 fL (80-97); Mean Platelet Volume 8.1 fL (7.4-10.4); Nucleated Red Blood Cells % 0.1; Platelet Count 302 10^3/uL (150-450); Red Blood Count 3.89 10^6 /uL (3.70-4.87); Red Cell Distribution Width 15 % (10-15); White Blood Count 7.5 10^3/uL (3.5-10.8)
[2022-06-20 14:46] LABS: Calcium 8.3 mg/dL (8.6-10.3); Magnesium 1.6 mg/dL (1.9-2.7); Potassium 3.1 mmol/L (3.5-5.0); Total Bilirubin 0.4 mg/dL (0.2-1.0)
[2022-06-20 14:52] LABS: Albumin/Globulin Ratio 1.1 (1-3); Globulin 3.8 g/dL (2-4); Total Protein 7.8 g/dL (6.4-8.9); eGFR CKD-EPI 11.8 (>60)
[2022-06-20] MEDS ORDERED: Magnesium Sulfate 2 gm BAG 2 GM/50 ML BAG IVPB ONE (15:41)
[2022-06-20] MEDS ORDERED: KCL 10 MEQ/50 ML IVPREMIX 10 MEQ/50 ML BAG ONE (16:16)
[2022-06-20] MEDS: methylPREDNISolone SOD SUCC 40 mg/ml 1 ml VIAL IV SCH (18:38)
[2022-06-20] MEDS: NS 0.9% w/ 20 Meq KCL 1000 ml 1,000 ML IV SCH (21:07)
[2022-06-20] MEDS ORDERED: Heparin 5000 UNITS/ML 1 mL VIAL SUBCUT SCH (22:00)
[2022-06-21] MEDS: methylPREDNISolone SOD SUCC 40 mg/ml 1 ml VIAL IV SCH ×3 (03:26→18:17)
[2022-06-21 05:58] LABS: ABS Lymphocytes 0.7 10^3/ul (1.0-4.8); ABS Monocytes 0.1 10^3/ul (0-0.8); ABS Neutrophils 3.1 10^3/ul (1.5-7.7); Hematocrit 33 % (35-47); Hemoglobin 11.3 g/dL (12.0-16.0); Lymphocyte % 17.2 %; Mean Corpuscular HGB Conc 34 g/dL (31-36); Mean Corpuscular Hemoglobin 32 pg (27-31); Mean Corpuscular Volume 95 fL (80-97); Mean Platelet Volume 8.1 fL (7.4-10.4); Platelet Count 230 10^3/uL (150-450); Red Blood Count 3.53 10^6 /uL (3.70-4.87); Red Cell Distribution Width 16 % (10-15); White Blood Count 3.9 10^3/uL (3.5-10.8)
[2022-06-21 06:17] LABS: Albumin 3.5 g/dL (3.2-5.2); Albumin/Globulin Ratio 1.2 (1-3); Calcium 7.9 mg/dL (8.6-10.3); Globulin 2.9 g/dL (2-4); Magnesium 2.3 mg/dL (1.9-2.7); Potassium 3.3 mmol/L (3.5-5.0); Total Bilirubin 0.3 mg/dL (0.2-1.0); Total Protein 6.4 g/dL (6.4-8.9)
[2022-06-21] MEDS: NS 0.9% w/ 20 Meq KCL 1000 ml 1,000 ML IV SCH ×2 (08:08→18:20)
[2022-06-21] MEDS: KCL 10 MEQ/50 ML IVPREMIX 10 MEQ/50 ML BAG IV SCH ×3 (10:49→13:34)
[2022-06-21] MEDS: Heparin 5000 UNITS/ML 1 mL VIAL SUBCUT SCH (21:29)
[2022-06-22] MEDS: methylPREDNISolone SOD SUCC 40 mg/ml 1 ml VIAL IV SCH ×3 (02:22→17:11)
[2022-06-22] MEDS: NS 0.9% w/ 20 Meq KCL 1000 ml 1,000 ML IV SCH ×2 (04:10→17:09)
[2022-06-22] MEDS: Heparin 5000 UNITS/ML 1 mL VIAL SUBCUT SCH ×3 (05:57→20:55)
[2022-06-22 06:01] LABS: ABS Lymphocytes 0.6 10^3/ul (1.0-4.8); ABS Monocytes 0.3 10^3/ul (0-0.8); ABS Neutrophils 5.1 10^3/ul (1.5-7.7); Hematocrit 28 % (35-47); Hemoglobin 9.5 g/dL (12.0-16.0); Lymphocyte % 9.8 %; Mean Corpuscular HGB Conc 34 g/dL (31-36); Mean Corpuscular Hemoglobin 32 pg (27-31); Mean Corpuscular Volume 95 fL (80-97); Mean Platelet Volume 7.8 fL (7.4-10.4); Nucleated Red Blood Cells % 0.1; Platelet Count 181 10^3/uL (150-450); Red Blood Count 2.95 10^6 /uL (3.70-4.87); Red Cell Distribution Width 15 % (10-15)
[2022-06-22 06:48] LABS: Albumin 3.1 g/dL (3.2-5.2); Albumin/Globulin Ratio 1.3 (1-3); Calcium 7.8 mg/dL (8.6-10.3); Globulin 2.3 g/dL (2-4); Magnesium 1.8 mg/dL (1.9-2.7); Potassium 4.3 mmol/L (3.5-5.0); Total Bilirubin 0.3 mg/dL (0.2-1.0); Total Protein 5.4 g/dL (6.4-8.9); eGFR CKD-EPI 83.3 (>60)
[2022-06-22] MEDS ORDERED: Magnesium Sulfate IV 1GM/100ML 1 GM/100 ML BAG IV ONE (13:28)
[2022-06-22] MEDS ORDERED: fentaNYL 100 mcg/2 ml 50 MCG/ML VIAL ONE (15:32)
[2022-06-22] MEDS ORDERED: Midazolam 5 mg/5 ml VIAL 1 mg/ml 5 ml VIAL (5 mg) ONE (15:32)
[2022-06-23] MEDS: methylPREDNISolone SOD SUCC 40 mg/ml 1 ml VIAL IV SCH ×2 (02:22→10:15)
[2022-06-23] MEDS: NS 0.9% w/ 20 Meq KCL 1000 ml 1,000 ML IV SCH (03:38)
[2022-06-23] MEDS: Heparin 5000 UNITS/ML 1 mL VIAL SUBCUT SCH (05:33)
[2022-06-23 06:30] LABS: ABS Lymphocytes 0.5 10^3/ul (1.0-4.8); ABS Monocytes 0.4 10^3/ul (0-0.8); ABS Neutrophils 6.6 10^3/ul (1.5-7.7); Hematocrit 32 % (35-47); Hemoglobin 10.6 g/dL (12.0-16.0); Lymphocyte % 6.9 %; Mean Corpuscular HGB Conc 33 g/dL (31-36); Mean Corpuscular Hemoglobin 32 pg (27-31); Mean Corpuscular Volume 97 fL (80-97); Mean Platelet Volume 8.3 fL (7.4-10.4); Platelet Count 223 10^3/uL (150-450); Red Cell Distribution Width 16 % (10-15); White Blood Count 7.5 10^3/uL (3.5-10.8)
[2022-06-23 06:52] LABS: Magnesium 1.7 mg/dL (1.9-2.7); Potassium 4.2 mmol/L (3.5-5.0)
[2022-06-23 07:18] VITALS: BP 155/78
== END 2022-06-23 11:35 | disposition home or self-care (01) | DRG 394 ==
LOC: CHOA 14:04 → MED 18:03 → SUATTDRO 18:03
PROVIDERS: ADMIT Internal Medicine Medical Oncology; ATTEND Internal Medicine

== ENCOUNTER 2022-08-19 04:43 | Inpatient (IN) ==
[2022-08-19] MEDS ORDERED: Iodixanol (CONTRAST) 320 MG/ML 100 ML SDV IV ONE (04:58)
[2022-08-19 05:14] LABS: Hematocrit 26 % (35-47); Hemoglobin 8.5 g/dL (12.0-16.0); Mean Corpuscular HGB Conc 33 g/dL (31-36); Mean Corpuscular Hemoglobin 31 pg (27-31); Mean Corpuscular Volume 94 fL (80-97); Mean Platelet Volume 7.8 fL (7.4-10.4); Platelet Count 89 10^3/uL (150-450); Red Blood Count 2.73 10^6 /uL (3.70-4.87); Red Cell Distribution Width 13 % (10-15); White Blood Count 0.9 10^3/uL (3.5-10.8)
[2022-08-19 05:25] LABS: Activated Partial Thrombo Time 33.6 seconds (26.0-38.0); INR 1.6 (0.88-1.18)
[2022-08-19 05:40] LABS: Albumin 3.1 g/dL (3.2-5.2); Albumin/Globulin Ratio 1.2 (1-3); Calcium 7.5 mg/dL (8.6-10.3); Creatinine, Serum 1.22 mg/dL (0.51-0.95); Globulin 2.5 g/dL (2-4); HDL Cholesterol 36.9 mg/dL; Total Bilirubin 0.5 mg/dL (0.2-1.0); Total Protein 5.6 g/dL (6.4-8.9); eGFR CKD-EPI 45.7 (>60)
[2022-08-19] MEDS ORDERED: NS 0.9% 1000 ml BAG 1,000 ML IV ONE (05:54)
[2022-08-19 06:04] LABS: Potassium 3.5 mmol/L (3.5-5.0)
[2022-08-19 06:38] LABS: ABS Lymphocytes 0.4 10^3/ul (1.0-4.8); ABS Monocytes 0.2 10^3/ul (0-0.8); Eosinophil % 5.2 %; Lymphocyte % 46.4 %; Nucleated Red Blood Cells % 0.6
[2022-08-19 06:49] LABS: Urine Appearance Cloudy; Urine Bilirubin Negative (Negative); Urine Blood Negative (Negative); Urine Color Yellow; Urine Glucose Negative (Negative); Urine Ketones Negative (Negative); Urine Nitrite Negative (Negative); Urine Protein Negative (Negative); Urine Specific Gravity 1.018 (1.002-1.030); Urine Urobilinogen Negative (Negative)
[2022-08-19] MEDS ORDERED: NS 0.9% 250 ml 250 ML IV ONE (13:47)
[2022-08-19] MEDS ORDERED: Azithromycin 500 mg/250 ml NS 500 MG/250 ML BAG IVPB ONE (13:58)
[2022-08-19 14:24] LABS: C Reactive Protein 138.64 mg/L (<8.01)
[2022-08-19] MEDS ORDERED: Gadoteridol (CONTRAST) 279.3 MG/ML 10 ML IV ONE (15:40)
[2022-08-19] MEDS: NS 0.9% 1000 ml BAG 1,000 ML IV SCH (18:29)
[2022-08-19] MEDS: cefTRIAXone 1 gm/50 mL D5W 1 GM/50 ML BAG IV SCH (21:23)
[2022-08-20] MEDS: NS 0.9% 1000 ml BAG 1,000 ML IV SCH ×3 (05:07→18:23)
[2022-08-20 06:20] LABS: ABS Neutrophils 0.2 10^3/ul (1.5-7.7); Hematocrit 25 % (35-47); Hemoglobin 8.2 g/dL (12.0-16.0); Mean Corpuscular HGB Conc 33 g/dL (31-36); Mean Corpuscular Hemoglobin 31 pg (27-31); Mean Corpuscular Volume 94 fL (80-97); Mean Platelet Volume 8.2 fL (7.4-10.4); Platelet Count 76 10^3/uL (150-450); Red Blood Count 2.61 10^6 /uL (3.70-4.87); Red Cell Distribution Width 14 % (10-15)
[2022-08-20 06:26] LABS: Creatinine, Serum 0.75 mg/dL (0.51-0.95); Potassium 3.2 mmol/L (3.5-5.0); eGFR CKD-EPI 81.9 (>60)
[2022-08-20 07:03] LABS: Anisocytosis 1+
[2022-08-20 07:04] LABS: ABS Lymphocytes 0.5 10^3/ul (1.0-4.8); ABS Monocytes 0.3 10^3/ul (0-0.8); Eosinophil % 2.2 %; Nucleated Red Blood Cells % 0.6
[2022-08-20] MEDS ORDERED: Potassium Chlor 20 meq TAB.ER PO ONE ×2 (08:22→16:26)
[2022-08-20] MEDS ORDERED: Polyethylene Glycol 3350 17 GM PACKET PO PRN (10:14)
[2022-08-20] MEDS: cefTRIAXone 1 gm/50 mL D5W 1 GM/50 ML BAG IV SCH (15:07)
[2022-08-20] MEDS: Cefepime 2 GM in Dextrose 2 GM/50 ML BAG IV SCH (18:23)
[2022-08-21] MEDS: Cefepime 2 GM in Dextrose 2 GM/50 ML BAG IV SCH ×3 (00:13→18:34)
[2022-08-21 09:01] LABS: Albumin 3.2 g/dL (3.2-5.2); Albumin/Globulin Ratio 1.3 (1-3); Creatinine, Serum 0.66 mg/dL (0.51-0.95); Globulin 2.5 g/dL (2-4); Potassium 3.3 mmol/L (3.5-5.0); Total Bilirubin 0.4 mg/dL (0.2-1.0); Total Protein 5.7 g/dL (6.4-8.9); eGFR CKD-EPI 90.3 (>60)
[2022-08-21 09:09] LABS: RBC Morphology Normal (Normal)
[2022-08-21] MEDS ORDERED: Potassium Chlor 20 meq TAB.ER PO ONE (09:20)
[2022-08-21 09:40] LABS: ABS Neutrophils 5.4 10^3/ul (1.5-7.7); Hematocrit 23 % (35-47); Hemoglobin 7.7 g/dL (12.0-16.0); Mean Corpuscular HGB Conc 33 g/dL (31-36); Mean Corpuscular Hemoglobin 32 pg (27-31); Mean Corpuscular Volume 95 fL (80-97); Mean Platelet Volume 7.8 fL (7.4-10.4); Platelet Count 80 10^3/uL (150-450); Red Blood Count 2.44 10^6 /uL (3.70-4.87); Red Cell Distribution Width 14 % (10-15); White Blood Count 6.6 10^3/uL (3.5-10.8)
[2022-08-21 09:43] LABS: ABS Lymphocytes 0.7 10^3/ul (1.0-4.8); ABS Monocytes 0.5 10^3/ul (0-0.8); Dohle Bodies Present; Eosinophil % 0.4 %; Lymphocyte % 10.4 %; Nucleated Red Blood Cells % 0.1
[2022-08-21 11:18] LABS: TSH Ultra Thyroid Stim Horm 2.58 mcIU/mL (0.34-5.60)
[2022-08-22] MEDS: Cefepime 2 GM in Dextrose 2 GM/50 ML BAG IV SCH (01:12)
[2022-08-22 06:08] LABS: Hematocrit 23 % (35-47); Hemoglobin 7.7 g/dL (12.0-16.0); Mean Corpuscular HGB Conc 33 g/dL (31-36); Mean Corpuscular Hemoglobin 31 pg (27-31); Mean Corpuscular Volume 94 fL (80-97); Mean Platelet Volume 7.6 fL (7.4-10.4); Platelet Count 103 10^3/uL (150-450); Red Blood Count 2.47 10^6 /uL (3.70-4.87); Red Cell Distribution Width 14 % (10-15); White Blood Count 9.2 10^3/uL (3.5-10.8)
[2022-08-22 06:27] LABS: ABS Eosinophils 0.1 10^3/ul (0-0.6); ABS Lymphocytes 0.9 10^3/ul (1.0-4.8); ABS Monocytes 0.6 10^3/ul (0-0.8); ABS Neutrophils 7.6 10^3/ul (1.5-7.7); Lymphocyte % 9.3 %; Nucleated Red Blood Cells % 0.1
[2022-08-22 06:50] LABS: Albumin 2.3 g/dL (3.2-5.2); Albumin/Globulin Ratio 1.2 (1-3); Creatinine, Serum 0.45 mg/dL (0.51-0.95); Total Bilirubin 0.2 mg/dL (0.2-1.0); Total Protein 4.3 g/dL (6.4-8.9)
[2022-08-22 07:17] LABS: Calcium 5.7 mg/dL (8.6-10.3); Potassium 2.7 mmol/L (3.5-5.0)
[2022-08-22 09:40] LABS: Albumin 3.3 g/dL (3.2-5.2); Albumin/Globulin Ratio 1.2 (1-3); Calcium 8.4 mg/dL (8.6-10.3); Creatinine, Serum 0.78 mg/dL (0.51-0.95); Globulin 2.8 g/dL (2-4); Potassium 3.7 mmol/L (3.5-5.0); Total Bilirubin 0.4 mg/dL (0.2-1.0); Total Protein 6.1 g/dL (6.4-8.9); eGFR CKD-EPI 78.2 (>60)
[2022-08-22 11:28] VITALS: BP 144/80
== END 2022-08-22 15:50 | disposition home or self-care (01) | DRG 312 ==
LOC: EDHOLD 04:43 → ED 04:43 → SUATTDRO 06:46 → MEDTELE 16:05 → EDHOLD 16:14 → MEDTELE 16:48
PROVIDERS: ADMIT Internal Medicine; ATTEND Internal Medicine Hematology & Oncology